=== PATIENT | female | born 1970 ===

== ENCOUNTER 2022-05-07 13:04 | Outpatient (REF) | payer OTHER, SELFPAY ==
[2022-05-07 15:08] LABS: HGB 12.9 g/dL (11.2-15.7); MCH 31.2 pg (27.0-33.0); MCHC 32.3 % (32.0-36.0); MCV 97 fL (80-95); MPV 10.8 fL (8.0-11.0); Platelet Count 308 10^3/uL (130-400); RBC 4.14 10^6/uL (3.93-5.22); RDW 12.2 % (11.7-14.6); RDW-SD 43.8 fL; WBC 5.81 10^3/uL (4.4-10.8)
[2022-05-07 15:25] LABS: Iron 126 ug/dL (50-170)
[2022-05-07 15:27] LABS: Hemoglobin A1C 5.7 % (<5.7)
[2022-05-07 16:06] LABS: ALT 27 U/L (14-59); AST 27 U/L (15-37); Albumin 3.8 g/dL (3.4-5.0); Alkaline Phosphatase 60 U/L (46-116); Anion Gap 8.7 mmol/L (3-11); BUN 13 mg/dL (7-18); Bilirubin, Total 0.3 mg/dL (0.2-1.0); CO2 26.3 mmol/L (21.0-32.0); CREATININE 0.8 mg/dL (0.55-1.02); Calcium 9.1 mg/dL (8.5-10.1); Chloride 106 mmol/L (98-107); Estimated GFR 89.15 (mL/min/1.73m2); Ferritin 78 ng/mL (8-252); Glucose 94 mg/dL (74-106); Potassium 4.2 mmol/L (3.5-5.1); Sodium 141 mmol/L (136-145); Total Protein 6.7 g/dL (6.4-8.2); Vitamin B12 534 pg/mL (193-986)
[2022-05-08 10:15] LABS: FSH 73.2 mIU/mL (See Note)
[2022-05-08 10:18] LABS: Parathyroid Hormone,Intact 41 pg/mL (19-88)
== END 2022-05-07 13:05 | disposition home or self-care (01) ==
LOC: NCHCN 13:04
PROVIDERS: Visit Provider Family Medicine
DX: R73.03 Prediabetes (principal); D64.9 Anemia, unspecified; N91.2 Amenorrhea, unspecified; Z98.84 Bariatric surgery status
CPT/HCPCS: 80053; 82306; 85027; 82607; 82728; 83001; 83036; 83540; 83970

== ENCOUNTER 2024-07-12 10:27 | Outpatient (REF) | payer OTHER, SELFPAY ==
--- NOTE | 2024-07-12 08:30 | PAPFT_PTH ---
PATIENT: Lety Cox LOC: [facility]N U#:[id number] AGE/SX: 54/F ROOM: RE07/12/[address]: Nava Fitzgerald : 1970 BED: DIS: 07/12/2024 SPEC #: [id number] RECD: 07/12/24 18:14 STATUS: HIRAL REFaith #: [id number] JASON: 07/12/24 08:[address]: Nava Fitzgerald DEPT: [facility] Cytology RECD BY: Donna Lozano Tissues: 1 - CX/ENDOCX FOR PAP SMEARS Procedures: PAP THIN PREP/UVM Screening HPV DNA PROBE Comments: [id number] (HPV 16 & 18/45)
--- OUTSIDE RECORDS SUMMARY | 2024-07-12 10:52 | XMS_ITS | Encounter Summary ---
Author Organization [facility] Address [address] [place] [address] Care Team Providers Care Manager Hvac Name Role Phone Paula Deleon MD Primary Care Provider [phone]- [phone] Encounter Details Date Type Department Care Team (Late st Contact Info) Description 03/31/2021 Lab Requisition [facility] Pathology & Laboratory Medicine - [facility] [address], [place] [address] Outr Resulting Lab, Provider Social History Tobacco Use Types Packs/Day Years Used Date Smoking Tobacco: Never Assessed Comments No Sex and Gender Information Value Date Recorded Sex Assigned at Not on file Legal Sex Female 17:59 EST Gender Identity Female 05/18/2022 15:42 EST Sexual Orientation Not on file documented as of this encounter Plan of Treatment Not on file documented as of this encounter Procedures Procedure Name Priority Date/Time Associated Diagnosis Comments VITAMIN D (25,OH) Routine 03/31/2021 15: 50 EDT documented in this encounter Results * VITAMIN D (25,OH) (03/31/2021 15:50 EDT) 25OH Vitamin D Tot 38.0 30.0 - 100.0 ng/mL 04/01/2021 13:05 EDT [facility] Comment: Vitamin D 25,OH Interpretive Ranges: Deficiency: ??<10.0 ng/mL Insufficiency: ??10.0 - 30.0 ng/mL Sufficiency: ??30.0 - 100.0 ng/mL Toxicity: ??>100.0 ng/mL Blood VENOUS BLOOD / Unknown 03/31/2021 15:50 EDT 03/31/2021 21:26 EDT us Provider Outr Resulting Lab CHEMISTRY & BLOOD GA S ORDERABLES Final Result [facility] [address] [place] [address] documented in this encounter Visit Diagnoses Not on filedocumented in this encounter Care Teams Manager Hvac Relationship Specialty Start Date End Date Paula Deleon MD [address] [address] PCP - General 09/29/12 documented as of this encounter
--- OUTSIDE RECORDS SUMMARY | 2024-07-12 10:52 | XMS_ITS | Encounter Summary ---
Author Organization [facility] Address [address] [place] [address] Care Team Providers Care Manual Lathe Operator Name Role Phone Unavailable Primary Care Provider Unavailabl e Encounter Details Date Type Department Care Team (Late st Contact Info) Description 05/05/2005 9:17 EST [facility] [address] [place] [address] Yamilka Matias MD [address] [place] [phone] Social History Tobacco Use Types Packs/Day Years Used Date Smoking Tobacco: Some Days Cigarettes 1 20 Smokeless Tobacco: Never Alcohol Use Standard Drinks/Week Comments No 0 (1 standard drink = 0.6 oz pur e alcohol) Comments No Sex and Gender Information Value Date Recorded Sex Assigned at Not on file Legal Sex Female 17:59 EST Gender Identity Female 05/18/2022 15:42 EST Sexual Orientation Not on file documented as of this encounter Plan of Treatment Not on file documented as of this encounter Visit Diagnoses Not on filedocumented in this encounter
--- OUTSIDE RECORDS SUMMARY | 2024-07-12 10:52 | XMS_ITS | Encounter Summary ---
Author Organization [facility] Address [address] [place] [address] Care Team Providers Care Filling Hauler Weaving Name Role Phone Unavailable Primary Care Provider Unavailabl e Encounter Details Date Type Department Care Team (Latest Contact Info) Description 03/25/2005 9:07 EDT - 03/27/2005 11:59 EDT Hospital Encounter [facility] General Surgery Unit [address] [place] [address] Yamilka Matias MD [address] [place] [phone] Discharge Disposition: Home or Self Care Social History Tobacco Use Types Packs/Day Years Used Date Smoking Tobacco: Never Assessed Comments Unknown Sex and Gender Information Value Date Recorded Sex Assigned at Not on file Legal Sex Female 17:59 EST Gender Identity Female 05/18/2022 15:42 EST Sexual Orientation Not on file documented as of this encounter Discharge Disposition Disposition Code Departure Means Destination Home or Self Care documented in this encounter OR Notes * OR Surgeon - Yamilka Matias - 03/25/2005 0000 EDT PROCEDURE REPORT PT TYPE: IP PT LOC: [id number] SERVICE DATE: 03/25/2005 SURGEON: Ryann Matias MD, Nat Matias MD, MD Donal, FACS OFFICE MESSENGER HELPER: Kade Hernandez MD PREOPERATIVE DIAGNOSIS: Morbid obesity, gastroesophageal reflux, low back pain, and stress incontinence. POSTOPERATIVE DIAGNOSIS: Morbid obesity, gastroesophageal reflux, low back, stress incontinence, and gallbladder cholesterolosis. PROCEDURE: Erick-en-Y gastric bypass and cholecystectomy. ANESTHESIA: General. INDICATIONS: This patient is a 34-year-old woman with a BMI of 48 and the above listed comorbidities, who has spent several months in the Bariat[facility] Clinic preparing for gastric bypass surgery. FINDINGS: Normal uterus and ovaries. Gallbladder with extensive gallbladder cholesterolosis. NARRATIVE: The patient was prepped and drapedsterilely over the abdomen after induction of general anesthesia in the supine position. upper midline incision was made and carried down through the midline fascia. The Omni retractor was then positioned. The gastrohepatic ligament was opened to gain access to the lesser sac. The esophagus was surrounded at the level of the EG junction with a Chrissie drain and pulled anteriorly. The G-tube was removed. The red rubber catheter was placed from the angle of His to a window in the lesser curve between the first and second branches of the left gastric vein. This was then used to guide the TLH 60 stapler around the stomach and a 10-15 cc gastric pouch was created in a vertical orientation with atriple firing of the TLH 60. The proximal jejunum was then identified by the ligament of Treitz and divided about 15-cm distally with theTLC 55 stapler. The mesentery was divided about 2-3 cm. 50-cm bypass limb was measured and stay sutures were used to tack the proximal jejunum to this point of the bypass limb. The bypass limb was then brought through a retrocolic, antegastric tunnel. The jejunojejunostomy was then performed in an end-to-side fashionwith the TLC 55 stapler,closing the enterotomies with the TLH 60 stapler. The jejunal mesenteric defect was closed with a running suture of 3-0 Vicryl. The jejunojejunostomy was inspected for hemostasis and integrity. This was found to be intact. this point the gastrojejunostomy was performed in a handsewn fashion with an outer layer of 3-0 silk and an inner layer of 3-0 Vicryl around a 32-Frenchdilator. The dilator was removed, the G-tube was positioned through the anastomosis, methylene bluewas insufflated under pressure, and no leak was identified. The G-tube was then removed and hemostasis in this area was found to be intact. falciform ligament was then divided and ligated with 2-0 Vicryl ties. The gallbladder was removed in a retrograde fashion down to the level of the cystic duct and artery,were ligated with 2-0 Vicryl ties. \par At this point, after correct sponge and instrument counts, the fascia was closed with a running suture of double-stranded #1 PDS. The subcutaneous tissue was irrigated and the skin was closed with jimmy. A sterile dressing was applied. The patient brought to the recovery room in good condition. Signed by Yamilka Matias MD, FACS 03/27/2005 09:42 Ryann Matias MD, [id number] Spaulding, MD, FACS Yamilka Matias MD, FACS [phone] - Yamilka Matias MD, FACS A - ljn Job ID: [id number] Document ID: [id number] cc: MD Yamilka Godinez MD, FACS documented in this encounter Plan of Treatment Not on file documented as of this encounter Procedures Procedure Name Priority Date/Time Associated Diagnosis Comments TEST, URINE Routine 03/25/2005 9:14 EDT documented in this encounter Results * TEST, URINE (03/25/2005 9:14 EDT) Result-Pregnanc y Test, Ur Neg [facility] 03/25/2005 9:14 EDT 03/25/2005 9:16 EDT us Yamilka Matias MD URINALYSIS ORDERABLES Final Result [facility] [address] [place] [address] documented in this encounter Visit Diagnoses Not on filedocumented in this encounter
--- OUTSIDE RECORDS SUMMARY | 2024-07-12 10:52 | XMS_ITS | Encounter Summary ---
Author Organization [facility] Address [address] [place] [address] Care Team Providers Care Rope Cleaner Name Role Phone Unavailable Primary Care Provider Unavailabl e Encounter Details Date Type Department Care Team (Late st Contact Info) Description 04/07/2005 12:13 EST Hospital Encounter [facility] [address] [place] [address] Yamilka Matias MD [address] [place] [phone] Social History Tobacco Use Types Packs/Day Years [...]
--- OUTSIDE RECORDS SUMMARY | 2024-07-12 10:52 | XMS_ITS | Encounter Summary ---
Author Organization [facility] Address [address] [place] [address] Care Team Providers Care Client Retention Specialist Name Role Phone Paula Deleon MD Primary Care Provider +1- [phone] Reason for Referral * Radiology Services (Routine/Next Available) - Authorization Not Required Specialty Diagnoses / Procedures Referred By Bri sun Referred To Contact Diagnoses Encounter for screening mammogram for malignant neoplasm of breast Procedures MA BREAST SCREENING GILBERT BILATERAL Tiffani Fitzgerald MD [address] [address] Phone: tel: fax: [facility] Referral ID Status Reason Start Date Expiration Date Visits Requested Visits Authorized [id number] Authorization Not Required 3 1 1 Reason for Visit * Radiology Services (Routine/Next Available) - Authorization Not Required Specialty Diagnoses / Procedures Referred By Bri sun Referred To Contact Diagnoses Encounter for screening mammogram for malignant neoplasm of breast Procedures MA BREAST SCREENING GILBERT BILATERAL Tiffani Fitzgerald MD 4 [facility] [address] [place] [address] Phone: tel: fax: [facility] [place] Referral ID Status Reason Start Date Expiration Date Visits Requested Visits Authorized [id number] Authorization Not Required 3 1 1 Encounter Details Date Type Department Care Team (Latest Contact Info) Description 08/18/2023 7:46 EDT - 08/18/2023 23:59 EDT Hospital Encounter [facility] [address] [place] [address] Encounter for screening mammogram for malignant neoplasm of breast Discharge Disposition: Home or Self Care Social [...] on file documented as of this encounter Last Filed Vital Signs Vital Sign Reading Time Taken Comments Blood Pressure - - Pulse - - Temperature - - Respiratory Rate - - Oxygen Saturation - - Inhaled Oxygen Concentration - - Weight 59 kg (130 lb) 08/18/2023 0807 EDT Height 149.2 cm (4' 10.75) 08/18/2023 0807 EDT Body Mass Index 26.48 08/18/2023 0807 EDT documented in this encounter Medications at Time of Discharge aspirin chewable 81 mg tablet Take 81 mg by mouth daily. Calcium 600 mg cap Take 600 mg by mouth daily. escitalopram (LEXAPRO) 20 mg tablet Take 40 mg by mouth daily. IRON/B CPLX/B12/LIVER EXTRACT (I.L.X. B-12 ORAL) Take 500 mg by mouth daily. MULTIVIT &MINERALS/FERROUS FUM (MULTI VITAMIN ORAL) Take by mouth daily. omeprazole (PRILOSEC) 20 mg capsule Take 40 mg by mouth daily. rizatriptan (MAXALT) 10 mg tablet Take 10 mg by mouth once as needed. May repeat in 2 hours if needed topiramate (TOPAMAX) 100 mg tablet Take 100 mg by mouth daily. zolpidem (AMBIEN) 10 mg tablet Take 10 mg by mouth at bedtime as needed. documented as of this encounter Discharge Disposition Disposition Code Departure Means Destination Home or Self Care documented in this encounter Plan of Treatment Not on file documented as of this encounter Procedures Procedure Name Priority Date/Time Associated Diagnosis Comments MA BREAST SCREENING GILBERT BILATERAL Routine 08/18/2023 8:14 EDT Encounter for screening mammogram for malignant neoplasm of breast documented in this encounter Results * MA BREAST SCREENING GILBERT BILATERAL (08/18/2023 8:14 EDT) Anatomical Region Laterality Modality Breast Bilateral Mammography 08/18/2023 10:0 8 EDT Impressions 08/18/2023 10:08 EDT Negative, no evidence of malignancy. RECOMMENDATION: Routine screening mammography is recommended. OVERALL ASSESSMENT: BI-RADS 1: Negative These results will be communicated to your patient via a lay letter from Radiology. If any additional imaging is needed we will contact your patient directly. [id number] Narrative 08/18/2023 10:08 EDT MA BREAST SCREENING GILBERT BILATERAL ??08/18/2023 8:06 AM History: ROUTINE SCREENING;Z12.31:Encounter for screening mammogram for malignant neoplasm of breast Comparison: ??Comparison has been made to previous images . ? Technique: Routine 3D tomosynthesis with synthesized 2D views with CAD Breast Composition: There are scattered areas of fibroglandular density. Bilateral Breast Findings: ??No significant masses, calcifications or other abnormalities are seen. Procedure Note Saran David MD - 08/18/2023 MA BREAST SCREENING GILBERT BILATERAL 08/18/2023 8:06 AM History: ROUTINE SCREENING;Z12.31:Encounter for screening mammogram formalignant neoplasm of breast Comparison: Comparison has been made to previous images . Technique: Routine 3D tomosynthesis with synthesized 2D views with CAD Breast Composition: There are scattered areas of fibroglandular density. Bilateral Breast Findings: No significant masses, calcifications or otherabnormalities are seen. IMPRESSION Negative, no evidence of malignancy. RECOMMENDATION: Routine screening mammography is recommended. OVERALL ASSESSMENT: BI-RADS 1: Negative These results will be communicated to your patient via a lay letter fromRadiology. If any additional imaging is needed we will contact yourpatient directly. [id number] Tiffani Fitzgerald MD IMG MAMMOGRAPHY ORDER CHRISTOPHER Final Result documented in this encounter Visit Diagnoses Diagnosis Encounter for screening mammogram for malignant neoplasm of breast Other screening mammogram documented in this encounter Care Teams Client Retention Specialist Relationship Specialty Start Date End Date Paula Deleon MD [address] [address] PCP - General 09/29/12 documented as of this encounter
--- OUTSIDE RECORDS SUMMARY | 2024-07-12 10:52 | XMS_ITS | Encounter Summary ---
Author Organization [facility] Address [address] [place] [address] Care Team Providers Care Scrap Piler Name Role Phone Unavailable Primary Care Provider Unavailabl e Encounter Details Date Type Department Care Team (Late st Contact Info) Description 03/03/2004 Results Only [facility] [address] [place] [address] Unknown, Provider, Social History Tobacco Use Types Packs/Day Years [...] Name Priority Date/Time Associated Diagnosis Comments VITAMIN B12 Routine 03/03/2004 12:39 EDT documented in this encounter Results * (ABNORMAL) VITAMIN B12 (03/03/2004 12:39 EDT) Vitamin B-12 218(L) 250 - 1100 pg/ml [facility] 03/03/2004 12:3 9 EDT 03/04/2004 20:58 EDT us Provider Unknown CHEMISTRY & BLOOD GAS ORDERA BLES Final Result [facility] [address] [place] [address] documented in this encounter Visit Diagnoses Not on filedocumented in this encounter
--- OUTSIDE RECORDS SUMMARY | 2024-07-12 10:52 | XMS_ITS | Encounter Summary ---
Author Organization [facility] Address [address] [place] [address] Care Team Providers Care Heel Top Lift Splitter Name Role Phone Unavailable Primary Care Provider Unavailabl e Encounter Details Date Type Department Care Team (Late st Contact Info) Description 04/23/2004 Results Only [facility] - Map conversion [address] [place] [address] Peter Wright MD [address] [place] [phone] Social History Tobacco Use Types Packs/Day Years [...] Procedure Name Priority Date/Time Associated Diagnosis Comments CYTOPATHOLOGY Routine 04/23/2004 0:00 EST documented in this encounter Results * CYTOPATHOLOGY (04/23/2004 0:00 EST) Pathology Report: CYTOPATHOLOGY REPORT Reports generated via electronic interface contain original data; however they are lacking the format of the original report. Caution should be taken when reading/interpreti ng unformatted reports. Name: ? AMINATA COX ? Accession #: ? [id number] : ? 1970 (Age: 33) ??F ?Collect Date: ? 04/23/2004 Location: ? [facility] ? Receive Date: ? 04/28/2004 Provider: ?PETER WRIGHT MD Copy to: ? Specimen/Source: ?ThinPrep Pap Test, Endocervix Last Menstrual Period: ? Other: ? HPVA - HPV testing requested if ASC-US on the current ThinPrep Pap test. ? SPECIMEN ADEQUACY ? Satisfactory for Evaluation - transformation zone component present GENERAL CATEGORIZATION ? Negative for Intraepithelial Lesion or Malignancy ? Document reviewed and electronically signed by: ? LOUISE Paredes(ASCP) ? Report Date: ??05/05/2004 08:26 End of Report [facility] 04/23/2004 04/28/2004 us Peter Wright MD PATHOLOGY ORDERABLES Final Result [facility] [address] [place] [address] documented in this encounter Visit Diagnoses Not on filedocumented in this encounter
--- OUTSIDE RECORDS SUMMARY | 2024-07-12 10:52 | XMS_ITS | Encounter Summary ---
Author Organization [facility] Address [address] [place] [address] Care Team Providers Care Cotton Dispatcher Name Role Phone Unavailable Primary Care Provider Unavailabl e Encounter Details Date Type Department Care Team (Late st Contact Info) Description 05/29/2008 Before PRISM Converted Visit ([place]) [facility] [place] [facility] [address] [place] [address] Peter Wright MD [address] [place] [phone] Social History Tobacco Use Types Packs/Day Years [...] Procedure Name Priority Date/Time Associated Diagnosis Comments FOLATE Routine 05/29/2008 10:22 EST VITAMIN B12 Routine 05/29/2008 10:22 EST CYTOPATHOLOGY Routine 05/29/2008 0:00 EST documented in this encounter Results * VITAMIN B12 (05/29/2008 10:22 EST) Vitamin B-12 510 250 - 1100 pg/ml [facility] 05/29/2008 10:2 2 EST 05/29/2008 21:32 EST us Provider Unknown MD CHEMISTRY & BLOOD GAS ORDERA BLES Final Result Performing Organization Address [facility] de Phone Number [facility] [address] [place] [address] * FOLATE (05/29/2008 10:22 EST) Folate 13.5 ng/mL [facility] Comment: Deficient: ??Less than 3.4 ng/mL Indeterminate: ??3.4-5.4 ng/mL Normal: ??Greater than 5.4 ng/mL 05/29/2008 10:2 2 EST 05/29/2008 21:32 EST us Provider Unknown MD CHEMISTRY & BLOOD GAS ORDERA BLES Final Result Performing Organization Address [facility] de Phone Number [facility] [address] [place] [address] * CYTOPATHOLOGY (05/29/2008 0:00 EST) Pathology Report: CYTOPATHOLOGY REPORT ? Reports generated via electronic interface contain original data; ? however they are lacking the format of the original report. ? Caution should be taken when reading/interpreti ng unformatted reports. ? Name: ? COX, AMINATA E ? Accession #: ? [id number] ? : ? 1970 (Age: 37) ??F ?Collect Date: ? 05/29/2008 ? Location: ? [facility] ? Receive Date: ? 05/30/2008 ? Provider: ?PETER JIMENEZPSON MD ? Copy to: ? Specimen/Source: ?Pap Test, Cervix, ThinPrep Imaging System with manual ?? evaluation ? Last Menstrual Period: ? Other: ? HPVA - HPV testing requested if ASC-US on the current ThinPrep Pap test. ? SPECIMEN ADEQUACY ? Satisfactory for Evaluation ? - transformation zone component present ? GENERAL CATEGORIZATION ? Negative for Intraepithelial Lesion or Malignancy ? Document reviewed and electronically signed by: ? Alexander Lam, CT(ASCP) ? Report Date: ??06/04/2008 10:10 ? End of Report ? [facility] 05/29/2008 05/30/2008 us Peter Wright MD PATHOLOGY ORDERABLES Final Result Performing Organization Address City/State/[facility] Co dc Phone Number [facility] [address] [place] [phone] documented in this encounter Visit Diagnoses Not on filedocumented in this encounter
--- OUTSIDE RECORDS SUMMARY | 2024-07-12 10:52 | XMS_ITS | Encounter Summary ---
Author Organization [facility] Address [address] [place] [address] Care Team Providers Care Crew Member Name Role Phone Paula Deleon MD Primary Care Provider +1- [phone] Reason for Referral * Radiology Services (Routine/Next Available) - Authorization Not Required Specialty Diagnoses / Procedures Referred By Bri t Referred To Contact Diagnoses Encounter for other screening for malignant neoplasm of breast Procedures MA BREAST SCREENING GILBERT BILATERAL Tiffani Fitzgerald MD [address] [place] [address] Phone: tel: fax: [facility] Referral ID Status Reason Start Date Expiration Date Visits Requested Visits Authorized [id number] Authorization Not Required 05/07/2022 1 1 Reason for Visit * Radiology Services (Routine/Next Available) - Authorization Not Required Specialty Diagnoses / Procedures Referred By Bri sun Referred To Contact Diagnoses Encounter for other screening for malignant neoplasm of breast Procedures MA BREAST SCREENING GILBERT BILATERAL Tiffani Fitzgerald MD 4 [facility] [address] [place] [address] Phone: tel: fax: [facility] Referral ID Status Reason Start Date Expiration Date Visits Requested Visits Authorized [id number] Authorization Not Required 05/07/2022 1 1 Encounter Details Date Type Department Care Team (Latest Contact Info) Description 07/01/2022 8:23 EST - 07/01/2022 23:59 EST Hospital Encounter [facility] Mammography [address] [id number] Encounter for other screening for malignant neoplasm of breast Discharge Disposition: [...] - Inhaled Oxygen Concentration - - Weight 56.7 kg (125 lb) 07/01/2022 0847 EST Height 149.9 cm (4' 11) 07/01/2022 0847 EST Body Mass Index 25.25 07/01/2022 0847 EST documented in this encounter Medications at Time [...] Comments MA BREAST SCREENING GILBERT BILATERAL Routine 07/01/2022 8:50 EST Encounter for other screening for malignant neoplasm of breast documented in this encounter Results * MA BREAST SCREENING GILBERT BILATERAL (07/01/2022 8:50 EST) Anatomical Region Laterality Modality Breast Bilateral Mammography 07/03/2022 7:03 EST Impressions 07/03/2022 7:03 EST Negative, no evidence of malignancy. RECOMMENDATION: Routine screening mammography is recommended. OVERALL ASSESSMENT: BI-RADS 1: Negative These results will be communicated to your patient via a lay letter from Radiology. If any additional imaging is needed we will contact your patient directly. Narrative 07/03/2022 7:03 EST MA BREAST SCREENING GILBERT BILATERAL ??07/01/2022 8:30 AM History: Screening, ? previous images somewhere Comparison: ??Comparison has been made to previous images. Technique: Routine 3D tomosynthesis with synthesized 2D views with CAD Bilateral Breast Composition: There are scattered areas of fibroglandular density. Bilateral Breast Findings: ??No significant masses, calcifications or other abnormalities are seen. Procedure Note Saran David MD - 07/03/2022 MA BREAST SCREENING GILBERT BILATERAL 07/01/2022 8:30 AM History: Screening, ? previous images somewhere Comparison: Comparison has been made to previous images. Technique: Routine 3D tomosynthesis with synthesized 2D views with CAD Bilateral Breast Composition: There are scattered areas of fibroglandulardensity. Bilateral Breast Findings: No significant masses, calcifications or otherabnormalities are seen. IMPRESSION Negative, no evidence of malignancy. RECOMMENDATION: Routine screening mammography is recommended. OVERALL ASSESSMENT: BI-RADS 1: Negative These results will be communicated to your patient via a lay letter fromRadiology. If any additional imaging is needed we will contact yourpatient directly. Tiffani Fitzgerald MD IMG MAMMOGRAPHY ORDER CHRISTOPHER Final Result documented in this encounter Visit Diagnoses Diagnosis Encounter for other screening for malignant neoplasm of breast documented in this encounter Care Teams Crew Member Relationship Specialty Start Date End Date Paula Deleon MD [address] [address] PCP - General 09/29/12 documented as of this encounter
--- OUTSIDE RECORDS SUMMARY | 2024-07-12 10:52 | XMS_ITS | Encounter Summary ---
Author Organization [facility] Address [address] [place] [address] Care Team Providers Care Senior Advisory Name Role Phone Unavailable Primary Care Provider Unavailabl e Encounter Details Date Type Department Care Team (Late st Contact Info) Description 09/18/2004 Results Only [facility] - [place] conversion [address] [place] [address] Unknown, Provider, Social History Tobacco Use Types [...] Procedure Name Priority Date/Time Associated Diagnosis Comments TRANSFERRIN Routine 09/18/2004 6:34 EDT PREALBUMIN Routine 09/18/2004 6:34 EDT FOLATE Routine 09/18/2004 6:34 EDT VITAMIN B12 Routine 09/18/2004 6:34 EDT documented in this encounter Results * TRANSFERRIN (09/18/2004 6:34 EDT) Transferrin 323 202 - 336 mg/dl [facility] 09/18/2004 6:34 EDT 09/18/2004 20:18 EDT us Provider Unknown CHEMISTRY & BLOOD GAS ORDERA BLES Final Result Performing Organization Address City/[facility]/ZIP Co de Phone Number [facility] [address] [place] [address] * PREALBUMIN (09/18/2004 6:34 EDT) Prealbumin 22 18 - 38 mg/dl [facility] 09/18/2004 6:34 EDT 09/18/2004 20:18 EDT us Provider Unknown CHEMISTRY & BLOOD GAS ORDERA BLES Final Result Performing Organization Address [facility] Co de Phone Number [facility] [address] [place] [address] * FOLATE (09/18/2004 6:34 EDT) Folate 15.1 ng/mL [facility] Comment: Deficient: ??Less than 3.4 ng/mL Indeterminate: ??3.4-5.4 ng/mL Normal: ??Greater than 5.4 ng/mL 09/18/2004 6:34 EDT 09/18/2004 20:18 EDT us Provider Unknown CHEMISTRY & BLOOD GAS ORDERA BLES Final Result Performing Organization Address [facility] Co de Phone Number [facility] [address] [place] [address] * VITAMIN B12 (09/18/2004 6:34 EDT) Vitamin B-12 598 250 - 1100 pg/ml [facility] 09/18/2004 6:34 EDT 09/18/2004 20:18 EDT us Provider Unknown CHEMISTRY & BLOOD GAS ORDERA BLES Final Result Performing Organization Address [facility]/ZIP Co de Phone Number [facility] [address] [place] [address] documented in this encounter Visit Diagnoses Not on filedocumented in this encounter
--- OUTSIDE RECORDS SUMMARY | 2024-07-12 10:52 | XMS_ITS | Encounter Summary ---
Author Organization [facility] Address [address] [place] [address] Care Team Providers Care Avionics Test Technician Name Role Phone Paula Deleon MD Primary Care Provider +1- [phone] Encounter Details Date Type Department Care Team (Late st Contact Info) Description 03/31/2021 Lab Requisition [facility] Pathology & Laboratory Medicine - [facility] [address] [place], [place] [phone] Outr Resulting Lab, Provider Social History Tobacco [...] Priority Date/Time Associated Diagnosis Comments FOLATE Routine 03/31/2021 15:50 EDT documented in this encounter Results * FOLATE (03/31/2021 15:50 EDT) Folate 23.1 See Note ng/mL 03/31/2021 22:55 EDT [facility] Comment: Reference Ranges for Folate: Deficient: ?< 3.4 ng/mL Indeterminate: ??3.4 - 5.4 ng/mL Normal: ? > 5.4 ng/mL The results of this assay can be falsely elevated due to the consumption of Biotin. Blood VENOUS BLOOD / Unknown 03/31/2021 15:50 EDT 03/31/2021 21:26 EDT us Provider Outr Resulting Lab CHEMISTRY & BLOOD GA S ORDERABLES Final Result Performing Organization Address City/State/[facility] Co de Phone Number [facility] [address] [place] [address] documented in this encounter Visit Diagnoses Not on filedocumented in this encounter Care Teams Avionics Test Technician Relationship Specialty Start Date End Date Paula Deleon MD [address] [address] PCP - General 09/29/12 documented as of this encounter
--- OUTSIDE RECORDS SUMMARY | 2024-07-12 10:52 | XMS_ITS | Encounter Summary ---
Author Organization [facility] Address [address] [place] [address] Care Team Providers Care Preschool Paraprofessional Name Role Phone Paula Deleon MD Primary Care Provider +1- [phone] Reason for Visit * Reason Comments New Patient Visit anemia and thrombocy tosis Encounter Details Date Type Department Care Team (Latest Contact Info) Description 10/03/2012 12:00 EDT Office Visit [facility] Hematology & Oncology - [place] [address] [place] [address] Dorcas Dugan MD Iron deficiency anemia, unspecified (Primary Dx); Secondary thrombocytosis Social History Tobacco Use Types Packs/Day Years Used Date Smoking Tobacco: Some Days Cigarettes 1 20 Smokeless Tobacco: Never Tobacco Cessation:Ready to Q uit: No; Counseling Given: Yes Alcohol Use Standard Drinks/Week Comments No 0 [...] Sign Reading Time Taken Comments Blood Pressure 110/80 10/03/2012 1223 EDT Pulse 68 10/03/2012 1223 EDT Temperature - - Respiratory Rate 14 10/03/2012 1223 EDT Oxygen Saturation - - Inhaled Oxygen Concentration - - Weight 61.2 kg (134 lb 14.4 oz) 10/03/2012 1223 EDT Height 151 cm (4' 11.45) 10/03/2012 1223 EDT Body Mass Index 26.84 10/03/2012 1223 EDT documented in this encounter Patient Instructions * Patient Instructions* Dorcas Dugan MD - 10/03/2012 14:32 EDT Please get your blood drawn at [facility] this week or next in the fating state before breakfast. I will call you with the results. I will schedule you for IV iron sucrose (Venofer) at [facility] ACU if needed. 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 Lety comes to the hem/onc outreach clinic accompanied by her long-term gentleman partner and her son. She th oroughly completed her new patient evaluation form, which we went through together on a oiec-gx-qhch basis. Prior to visiting with Ayaka today, I reviewed [facility] E[facility] in addition to outpatient clinic notes from Dr Deleon coupled with labs from [facility]. I'm here about increased blood platelets. HISTORY OF PRESENT ILLNESS: 42-year-old white female with past medical history remarkable for obesity status post gastric bypass via Erick-en-Y coupled with cholecystectomy 02/2005, migrainous headaches, GERD, depression, and an approximate 68-hwsn-nlvd history of cigarette smoking, presently being seen for mild anemia and thrombocytosis. In going through past [facility] EMR, there is a discharge summary from [facility] hospitalization in the fall of 2004 at the time of her gastric bypass surgery and cholecystectomy. Her most recent labs in the [facility] system are from late 04/2008 including folate 13.5, and vitamin B12 510. She was seen by Dr Deleon for routine health maintenance on 07/08/2012. In going t hrough Dr Deleon's note, it appears that Ayaka had a quite normal physical exam at that time and was without any significant complaints. Labs from 07/12/2012 include the following: CBC with diff with WBC 7.4 and normal-appearing differential including ANC 4.7, hemoglobin 11.4, hematocrit 36%, MCV 84, and platelet count 608,000; TSH 0.93; CMP entirely normal; iron 35. Her labs were repeated on 08/09/2012 including another CBC showing WBC 6.4, no diff, hemoglobin 11.6, hematocrit 36%, MCV 82, and platelet count 559,000, as well as, once again, an entirely normal CMP. A third CBC with diff was done on 09/28/2012 showing WBC 7.3, normal diff, hemoglobin 11, hematocrit 36%, MCV 85, and platelet count 541,000. She is subsequently referred for further evaluation, especially of her clinically asymptomatic but persistent thrombocytosis. REVIEW OF SYSTEMS: On review of systems questioning, Lety has a long list of no's. She has successfully lost well over 100 pounds since her gastric bypass surgery eight years ago. She describesa healthy diet including fruits, vegetables, lean meats, eggs, and minimal dairy as she oftentimes has some bloating and diarrhea if she eats/drinks milk products. She has tried iron supplementation in the past and has always experienced abdominal bloating and constipation with even minimal supplements. She is quite faithful in taking a daily multivitamin, calcium and Vitamin B12 orally. She doesnote intermittent slight bloating as well as nonbloody diarrhea ever since her gastric bypass surgery. She denies any documented fevers, drenching night sweats, fatigue, anorexia, headache, rash, pruritus, chest pain, cough, palpitations, difficulty swallowing, nausea/vomiting, new bony pain, abdominal pain, bowel or bladder incontinence, lower extremity edema, or obvious bleeding from any sites. Her gynecologic history is remarkable for 1 and subsequent delivery in her early 20s. Zaki had a menstrual period in the spring of 2009 and currently has an IUD in place. She is quite sure with me that she has not had vaginal bleeding over the past approximate 3 years. She denies nosebleeds, hemoptysis, hematemesis, bright red blood per rectum, melena or hematuria. She has never hadany thromboembolic episodes that she is aware of. PAST MEDICAL HISTORY: GERD, migrainous headaches, and depression. One uncomplicated and delivery in her early 20s. Status post gastric bypass coupled with cholecystectomy in 02/2005. MEDICATIONS: Prilosec 40 mg daily. Lexapro 40 mg daily. Topamax 100 mg daily. Ambien p.r.n. Maxalt p.r.n. Aspirin 81 mg daily. Calcium 600 mg b.i.d. Vitamin B12 500 mg daily. Multivitamin daily. ALLERGIES: She is allergic to SULFA MEDS, which have caused hives in the past. FAMILY HISTORY: Father in his late 50s from colon cancer. Her maternal grandmother from breast cancer in her 50s. Her maternal grandfather from leukemia in his early 70s. She has maternal aunts with histories of breast cancer. SOCIAL HISTORY: Lety is a [place]. 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 She has been with her gentleman partner over the past approximate 20years. She is single. She has smoked about 1 pack of cigarettes per day on and off for 20 years. ETOH -- minimal. OBJECTIVE: Weight 61.2 kilograms, height 151 cm. BP 110/80, pulse 68, RR 14. Pain score zero. General appearance: Pleasant, nicely-groomed, healthy-appearing middle-aged white female sitting a bit anxiously in the chair. HEENT exam shows normal hair and eyebrows, white sclerae, no temporal muscle wasting and no obvious conjunctival or facial pallor. There is no abnormal lymphadenopathy in her neck, supraclavicular or axillary regions. Back without significant bony spinal tenderness or deformity. Lungs clear to A+P with a good inspiratory effort. CV exam with RRR. Soft, nontender abdomen without HSM or palpable masses. Lower extremities without edema or rash. Alert, oriented x3 with full affect. She asked several appropriate questions. Normal gait. IMPRESSION: 42-year-old white female with a mild microcytic anemia, borderline low iron level, and mild clinically asymptomatic thrombocytosis per recent labs over the past couple of months. I think this most likely represents underlying mild chronic iron deficiency anemia with a secondary reactivethrombocytosis. While she eats a diet that does contain probably a fair amount of iron, she may have difficulty with full absorption of dietary iron given her past gastric bypass surgery. She does not have any sites of obvious blood loss including any actual menses over the past few years. I think we will get her labs updated with another CBC, iron level, and ferritin, with these labs done in themorning in the fasting state to verify that she really does have underlying iron deficiency anemia.If so, I think further upping the iron in her diet and/or asking her to try to take oral iron supplements will not really be overly helpful as I think she will continue to have some malabsorption problems, plus she will get too much GI symptomatology from p.o. iron. We could then look at IV iron inthe form of iron sucrose (Venofer). I would expect that her thrombocytosis should normalize following adequate iron replenishment. There is a small chance that this represents a primary thrombocytosis, although I doubt this. PLAN: 1. I spent 65 minutes in nhur-lj-nfph contact with Lety and her family today. We discussed her labs and differential diagnosis of both anemia and thrombocytosis. She seems significantly emotionally relieved after our discussion as she was pretty scared when we first together that I might have s ome kind of bad cancer problem like so many other people I know. 2. Lety will have labs drawn in the fasting state either this week or next to the [facility] include a CBC with diff, iron, and ferritin. I will contact her with those test results and arrange for IV iron sucrose if that is appropriate. 3. We did discuss smoking cessation. 4. Contingency plan for bone marrow aspirate/biopsy and JAK2 testing if she is actually not iron deficient. I am doubtful that we are going to need this level of testing, however. Electronically Signed by Dorcas Dugan MD 10/11/2012 08:56 Dorcas Dugan MD Hematology / Oncology Attending - Dorcas Dugan MD - ARMANDO Job ID: SM Doc ID: [id number] Ext Doc ID: [id number] cc: Paula Deleon MD * Dorcas Dugan MD - 10/03/2012 1431 EDT This office note has been dictated. documented in this encounter Miscellaneous Notes * Scanned Note-Null - SITE MEDICAL DIRECTOR, SCAN 2 - 10/10/2012 0331 EDT documented in this encounter Plan of Treatment Not on file documented as of this encounter Visit Diagnoses Diagnosis Iron deficiency anemia, unspecified- Primary Secondary thrombocytosis Essential thrombocythemia documented in this encounter Historical Medications * This list may reflect changes made after this encounter. rizatriptan (MAXALT) 10 mg tablet Take 10 mg by mouth once as needed. May repeat in 2 hours if needed zolpidem (AMBIEN) 10 mg tablet Take 10 mg by mouth at bedtime as needed. MULTIVIT &MINERALS/FERROUS FUM (MULTI VITAMIN ORAL) Take by mouth daily. aspirin chewable 81 mg tablet Take 81 mg by mouth daily. IRON/B CPLX/B12/LIVER EXTRACT (I.L.X. B-12 ORAL) Take 500 mg by mouth daily. Calcium 600 mg cap Take 600 mg by mouth daily. topiramate (TOPAMAX) 100 mg tablet Take 100 mg by mouth daily. escitalopram (LEXAPRO) 20 mg tablet Take 40 mg by mouth daily. omeprazole (PRILOSEC) 20 mg capsule Take 40 mg by mouth daily. added in this encounter Care Teams Preschool Paraprofessional Relationship Specialty Start Date End Date Paula Deleon MD [address] [address] PCP - General 09/29/12 documented as of this encounter
--- OUTSIDE RECORDS SUMMARY | 2024-07-12 10:52 | XMS_ITS | Encounter Summary ---
Author Organization [facility] Address [address] [place] [address] Care Team Providers Care Food Service Clerk Name Role Phone Unavailable Primary Care Provider Unavailabl e Encounter Details Date Type Department Care Team (Late st Contact Info) Description 11/17/2005 Results Only [facility] - Map conversion [address] [place] [address] Peter Wright MD [address] [place] [id number] Social History Tobacco Use Types Packs/Day Years [...] Priority Date/Time Associated Diagnosis Comments CYTOPATHOLOGY Routine 11/17/2005 0:00 EDT documented in this encounter Results * CYTOPATHOLOGY (11/17/2005 0:00 EDT) Pathology Report: CYTOPATHOLOGY REPORT Reports generated via electronic interface contain original data; however they are lacking the format of the original report. Caution should be taken when reading/interpreti ng unformatted reports. Name: ? AMINATA COX ? Accession #: ? [id number] : ? 1970 (Age: 35) ??F ?Collect Date: ? 11/17/2005 Location: ? [facility] ? Receive Date: ? 11/19/2005 Provider: ?PETER WRIGHT MD Copy to: ? Specimen/Source: ?ThinPrep Pap Test, Cervix, processed on [employer] ThinPrep Imaging System, with manual evaluation Last Menstrual Period: ? Other: ? HPVA - HPV testing requested if ASC-US on the current ThinPrep Pap test. ? SPECIMEN ADEQUACY ? Satisfactory for Evaluation - transformation zone component absent GENERAL CATEGORIZATION ? Negative for Intraepithelial Lesion or Malignancy ? Document reviewed and electronically signed by: ? Rebecca Walsh, RUST(ASCP) ? Report Date: ??11/23/2005 10:59 End of Report [facility] 11/17/2005 11/19/2005 us Peter Wright MD PATHOLOGY ORDERABLES Final Result [facility] [address] [place] [address] documented in this encounter Visit Diagnoses Not on filedocumented in this encounter
--- OUTSIDE RECORDS SUMMARY | 2024-07-12 10:52 | XMS_ITS | Encounter Summary ---
Author Organization [facility] Address [address] [place] [address] Care Team Providers Care Manager Of Network Name Role Phone Unavailable Primary Care Provider Unavailabl e Encounter Details Date Type Department Care Team (Late st Contact Info) Description 09/10/2005 10:24 EDT Hospital Encounter [facility] [address] [place] [address] Delaney Sarkar, LEGAL RESEARCHER 61 [facility] [address] [id number] Social History Tobacco Use Types Packs/Day Years [...] Date/Time Associated Diagnosis Comments VITAMIN B12 Routine 12/05/2007 13:42 EDT PREALBUMIN Routine 09/11/2005 7:11 EDT FERRITIN Routine 09/11/2005 7:11 EDT VITAMIN B12 Routine 09/11/2005 7:11 EDT documented in this encounter Results * VITAMIN B12 (12/05/2007 13:42 EDT) Pathologist [facility] Vitamin B-12 733 250 - 1100 pg/ml [facility] 12/05/2007 13:4 2 EDT 12/05/2007 22:10 EDT us Provider Unknown MD CHEMISTRY & BLOOD GAS ORDERA BLES Final Result Performing Organization Address [facility] Co de Phone Number [facility] [address] [place] [address] * PREALBUMIN (09/11/2005 7:11 EDT) Pathologist [facility] Prealbumin 21 18 - 38 mg/dl [facility] 09/11/2005 7:11 EDT 09/11/2005 21:18 EDT Provider Unknown CHEMISTRY & BLOOD GAS ORDERA BLES Final Result Performing Organization Address [facility] de Phone Number [facility] [address] [place] [address] * FERRITIN (09/11/2005 7:11 EDT) Pathologist [facility] Ferritin 268 10 - 291 ng/mL [facility] 09/11/2005 7:11 EDT 09/11/2005 21:18 EDT us Provider Unknown CHEMISTRY & BLOOD GAS ORDERA BLES Final Result Performing Organization Address [facility] Co de Phone Number [facility] [address] [place] [address] * VITAMIN B12 (09/11/2005 7:11 EDT) Pathologist [facility] Vitamin B-12 444 250 - 1100 pg/ml [facility] 09/11/2005 7:11 EDT 09/11/2005 21:18 EDT us Provider Unknown CHEMISTRY & BLOOD GAS ORDERA BLES Final Result [facility] [address] [place] [address] documented in this encounter Visit Diagnoses Not on filedocumented in this encounter
--- OUTSIDE RECORDS SUMMARY | 2024-07-12 10:52 | XMS_ITS | Encounter Summary ---
Author Organization [facility] Address [address] [place] [address] Care Team Providers Care Roughener Name Role Phone Unavailable Primary Care Provider Unavailabl e Encounter Details Date Type Department Care Team (Late st Contact Info) Description 07/01/2006 Results Only [facility] [address] [place] [address] Unknown, Provider, Social History Tobacco Use Types [...] Procedure Name Priority Date/Time Associated Diagnosis Comments FERRITIN Routine 07/01/2006 9:53 EST VITAMIN B12 Routine 07/01/2006 9:53 EST documented in this encounter Results * FERRITIN (07/01/2006 9:53 EST) Ferritin 100 10 - 291 ng/mL [facility] 07/01/2006 9:53 EST 07/01/2006 22:11 EST us Provider Unknown CHEMISTRY & BLOOD GAS ORDERA BLES Final Result [facility] [address] [place] [address] * VITAMIN B12 (07/01/2006 9:53 EST) Vitamin B-12 808 250 - 1100 pg/ml [facility] 07/01/2006 9:53 EST 07/01/2006 22:11 EST us Provider Unknown CHEMISTRY & BLOOD GAS ORDERA BLES Final Result Performing Organization Address City/State/[facility] Co de Phone Number [facility] [address] [place] [address] documented in this encounter Visit Diagnoses Not on filedocumented in this encounter
--- OUTSIDE RECORDS SUMMARY | 2024-07-12 10:52 | XMS_ITS ---
Author Organization Unknown Address [address] [place] [phone] Phone Care Team Providers Care Almond Pan Finisher Name Role Phone BHASKAR HDZ Registered Nurse Unavailable KRUNAL GHOSH Registered Nurse Unavailable BAKARI Mosley Attending Unavailable [facility] Unavailable [facility] [place] Primary Unavailable UNLISTED PROVIDER - REQUESTED Xhandoff Un available Results D-DIMER - Collect Date/Time: 05/19/2021 19:52 [facility] ID: [id number] [address] [place] [address], [address] LOINC: 23958-8 Test Value Unit Reference Range Code Code System Flag D-DIMER 0.44 mg/L L=0.19 H=0.50 60971-3 LOINC COMPREHENSIVE METABOLIC PANE L (CMP) - Collect Date/Time: 05/19/2021 19:45 [facility] ID: [id number] [address] [place] [address], [address] LOINC: 91082-5 Test Value Unit Reference Range Code Code System Flag GLUCOSE 105 mg/dL L=70 H=116 2345-7 LOINC BUN 9 mg/dL L=6 H=25 3094-0 LOINC CREATININE 0.79 mg/dL L=0.51 H=0.95 2160-0 LOINC SODIUM SERUM 141 mmol/L L=136 H=145 2951-2 LOINC POTASSIUM SERUM 3.5 mmol/L L=3.4 H=5.2 2823-3 LOINC CHLORIDE SERUM 107 mmol/L L=96 H=110 2075-0 LOINC CARBON DIOXIDE (CO2) 26 mmol/L L=22 H=34 8-9 LOINC ANION GAP 8.0 mmol/L 09320-9 LOINC CALCIUM SERUM 9.2 mg/dL L=8.2 H=10.2 45464-6 LOINC BILIRUBIN TOTAL 0.2 mg/dL L=0.0 H=1.3 1975-2 LOINC ALK. PHOS. 64 U/L L=46 H=116 6768-6 LOINC SGOT (AST) 20 U/L L=15 H=37 1920-8 LOINC SGPT (ALT) 28 U/L L=12 H=78 1742-6 LOINC TOTAL PROTEIN 6.5 gm/dL L=6.0 H=8.0 2885-2 LOINC ALBUMIN 3.6 gm/dL L=3.4 H=5.0 1751-7 LOINC AGE 50 years eGFR (non-Afr.Amer.) 77 mL/min 69052-5 LOINC eGFR (Afr-Slovenian) 93 mL/min 95762-6 LOINC TROPONIN-I ADM.* - Collect D ate/Time: 05/19/2021 19:45 [facility] ID: [id number] [address] [place] [address], [address] LOINC: 77675-3 Test Value Unit Reference Range Code Code System Flag TROPONIN-I < 0.017 ng/mL L=0.000 H=0.060 69390-0 LOINC CBC W/ DIFFERENTIAL* - Colle ct Date/Time: 05/19/2021 19:45 [facility] ID: [id number] [address] [place] [address], [address] LOINC: 06851-8 Test Value Unit Reference Range Code Code System Flag WBC 7.21 th/cmm L=5.00 H=10.00 6690-2 LOINC NEUT % 54.4 % L=40.0 H=80.0 LYMPH % 37.9 % L=10.0 H=50.0 MONO % 5.1 % L=2.0 H=12.0 58223-1 LOINC EOS % 1.9 % L=0.0 H=8.0 BASO % 0.4 % L=0.0 H=3.0 IG % 0.3 % L=0.0 H=1.1 2514-8 LOINC NRBC % 0.0 % L=0.0 H=0.0 03553-2 LOINC NEUT abs count 3.9 th/cmm L=1.6 H=8.4 751-8 LOINC LYMPH abs count 2.7 th/cmm L=1.5 H=4.0 731-0 LOINC MONO abs count 0.4 th/cmm L=0.2 H=1.0 742-7 LOINC EOS abs count 0.1 th/cmm L=0.0 H=0.5 711-2 LOINC BASO abs count 0.0 th/cmm L=0.0 H=0.2 704-7 LOINC IG abs count 0.0 th/cmm L=0.0 H=0.1 73544-7 LOINC NRBC abs count 0.0 mil/cmm L=0.0 H=0.0 76840-9 LOINC RBC 4.58 mil/cmm L=3.90 H=5.40 789-8 LOINC HEMOGLOBIN 13.7 gm/dL L=12.0 H=16.0 718-7 LOINC HEMATOCRIT 42 % L=37 H=47 4544-3 LOINC MCV 91 fL L=82 H=92 787-2 LOINC MCH 29.9 pg L=27.0 H=31.0 785-6 LOINC MCHC 32.9 % L=32.0 H=36.0 786-4 LOINC RDW-SD 53.7 fL L=39.0 H=49.0 788-0 LOINC H PLATELET COUNT 326 th/cmm L=150 H=450 777-3 LOINC URINALYSIS WITH REFLEX CULT IF POSITIVE* - Collect Date/Time: 05/19/2021 18:15 [facility] ID: [id number] [address] [place], [place], [address] LOINC: 48812-9 Test Value Unit Reference Range Code Code System Flag COLLECTION MODE: CLEAN CATCH Color YELLOW yellow 5778-6 LOINC Appearance CLEAR clear 5767-9 LOINC Glucose urine NEGATIVE negative mg/dl 75673-6 LOINC Bilirubin NEGATIVE negative 5770-3 LOINC Ketones NEGATIVE negative mg/dl 2514-8 LOINC Spec gravity 1.025 1.003 - 1.030 5811-5 LOINC pH urine 6.0 5.0 - 7.0 2756-5 LOINC Protein NEGATIVE negative mg/dl 77461-0 LOINC Urobilinogen 0.2 <or= 1 EU/dl 75600-8 LOINC Nitrite. NEGATIVE negative 5802-4 LOINC Blood NEGATIVE negative 5794-3 LOINC Leukocytes. TRACE negative A MICROSCOPIC INDICATED WBCs. 0-5 0-5 / hpf 84672-9 LOINC RBCs none 0-5 / hpf 24400-1 LOINC Epith cells 0-5 0-5 / hpf 13963-7 LOINC Cell types squamous Crystals calcium ox. none Bacteria minimal none Mucus none none 8247-9 LOINC Casts none none /lpf 80636-4 LOINC Other 43398-4 LOINC XR EXAM CHEST 2 VIEWS - Comp leted: 05/19/2021 07:37 LOINC: PA AND LATERAL CHEST:The hea rt is not enlarged. The lungs appear mildly hyperinflated but clear. No pleural effusion is seen. CONCLUSION:No evidence of acute process. Dictated by: DANIEL VERDIN RADIOLOGIST Transcribed by: MEL 05/20/2109:15 D Thursday, May 20, 2021 7:36:08 AM [id number] Electronically Reviewed and Signed By: DC VERDIN RADIOLOGIST 05/20/21 09:43 Copy for: 185 HEALTH INFORMATION MGMT DISCHARGED Social History Type Status Start Date End Date Code Code Syst em Smoking History Former smoker 1390228 SNOMED CT Sex Female Vital Signs Vital Sign Value Unit Guthrie Value Guthrie Unit Date/Time Recent/Initial? Code Code System Body Mass Index 25.71 kg/m2 05/19/2021 17:59 Initial 90777 -5 LOINC Systolic Blood Pressure 143 mm[Hg] 05/19/2021 18:16 Most Recent 8480- 6 LOINC Diastolic Blood Pressure 88 mm[Hg] 05/19/2021 18:16 Most Recent 8462- 4 LOINC Systolic Blood Pressure 130 mm[Hg] 05/19/2021 17:59 Initial 8480- 6 LOINC Diastolic Blood Pressure 103 mm[Hg] 05/19/2021 17:59 Initial 8462- 4 LOINC Body Surface Area 1.51 m2 05/19/2021 17:59 Initial 3140- 1 LOINC Height 147.320 0 cm 58.00 in 05/19/2021 17:59 Initial 8302- 2 LOINC O2 Saturation 98 % 2020 18:16 Most Recent 10847 -5 LOINC O2 Saturation 100 % 2020 17:59 Initial 56241 -5 LOINC Pulse 78.0 /min 05/19/2021 18:16 Most Recent 8867- 4 LOINC Pulse 72.0 /min 05/19/2021 17:59 Initial 8867- 4 LOINC Respiration 16 /min 05/19/20 18:16 Most Recent 9279- 1 LOINC Respiration 16 /min 05/19/20 17:59 Initial 9279- 1 LOINC Temperature 35.7 Evita 96.3 F 05/19/20 17:59 Initial 8310- 5 LOINC Weight 55.79 kg 123.00 lbs 05/19/2021 17:59 Initial 02394 -7 LOINC Hospital Discharge Instructions Should you have any questions prior to discharge, please contact a member of your healthcare team. If you have left the hospital and have any questions, please contact your primary care physician. Reason For Referral No Data Found Procedures Procedure Name Date Status Code Code Syste m History of gastric bypass completed 675669789 SNOMEDCT Problems Problem Start Date Resolved Date Status Code Code System MIGRAINE 05/19/2021 resolved 11403055 SNOMED-CT ANXIETY 05/19/2021 resolved 47541862 SNOMED-CT Allergies and Adverse Reactions Allergy Substance Reaction Severity Start Date Concern Status Code Code System SULFA (sulfonamide) HIVES, PT SAYS CAN TAKE CELEBREX PER ANTON (SNOMED-CT: null) Moderate Active 59058840 SNOMED-CT NAPROXEN Hives (SNOMED-CT: 669408565) Active 7258 RxNorm Plan of Treatment LAB DRAW 15MIN 04/07/2023 LAB DRAW 15MIN 07/23/2022 LAB DRAW 15MIN 04/11/2021 Encounters Encounter Diagnosis Start Date Code Code Sys tem Pleurodynia 05/19/2021 SNOMED-CT Personal Care Team Section Performer Name Performer Role Active Date Inactive Da te Imaging Narrative Notes
--- OUTSIDE RECORDS SUMMARY | 2024-07-12 10:52 | XMS_ITS | Encounter Summary ---
Author Organization [facility] Address [address] [place] [address] Care Team Providers Care Medical Reimbursement Specialist Name Role Phone Paula Deleon MD Primary Care Provider [phone]- [phone] Encounter Details Date Type Department Care Team (Late st Contact Info) Description 03/31/2021 Lab Requisition [facility] Pathology & Laboratory Medicine - [facility] [address] [place], [place] [address] Outr Resulting Lab, Provider Social History Tobacco [...] Date/Time Associated Diagnosis Comments VITAMIN B12 Routine 03/31/2021 15:50 EDT documented in this encounter Results * VITAMIN B12 (03/31/2021 15:50 EDT) Vitamin B12 868 211 - 911 pg/mL 03/31/2021 22:57 EDT [facility] Blood VENOUS BLOOD / Unknown 03/31/2021 15:50 EDT 03/31/2021 21:26 EDT us Provider Outr Resulting Lab CHEMISTRY & BLOOD GA S ORDERABLES Final Result [facility] [address] [place] [address] documented in this encounter Visit Diagnoses Not on filedocumented in this encounter Care Teams Medical Reimbursement Specialist Relationship Specialty Start Date End Date Paula Deleon MD [address] [address] PCP - General 09/29/12 documented as of this encounter
--- OUTSIDE RECORDS SUMMARY | 2024-07-12 10:52 | XMS_ITS | Encounter Summary ---
Author Organization [facility] Address [address] [place] [address] Care Team Providers Care Director Of Hospitality Name Role Phone Unavailable Primary Care Provider Unavailabl e Encounter Details Date Type Department Care Team (Late st Contact Info) Description 03/09/2003 13:53 EDT Hospital Encounter [facility] - Other [address] [place] [address] Peter Wright MD [address] [place] [address] Social History Tobacco Use Types [...] Priority Date/Time Associated Diagnosis Comments CYTOPATHOLOGY Routine 03/09/2003 0:00 EDT documented in this encounter Results * CYTOPATHOLOGY (03/09/2003 0:00 EDT) Pathology Report: CYTOPATHOLOGY REPORT Reports generated via electronic interface contain original data; however they are lacking the format of the original report. Caution should be taken when reading/interpreti ng unformatted reports. Name: ? COXAMINATA ? Accession #: ? [id number] : ? 1970 (Age: 32) ??F ?Collect Date: ? 03/09/2003 Location: ? [facility] ? Receive Date: ? 03/12/2003 Provider: ?PETER WRIGHT MD Copy to: ? Specimen/Source: ?ThinPrep Pap Test, Cervix/Endocervix Last Menstrual Period: ? Menstrual/Pregnanc y Status: ? Amenorrhea Other: ? HPVA - HPV testing requested if ASC-US on the current ThinPrep Pap test. ? SPECIMEN ADEQUACY ? Satisfactory for Evaluation - transformation zone component present GENERAL CATEGORIZATION ? Negative for Intraepithelial Lesion or Malignancy ? Document reviewed and electronically signed by: ? LOUISE Paredes(ASCP) ? Report Date: ??03/15/2003 08:26 End of Report [facility] 03/09/2003 03/12/2003 us Peter Wright MD PATHOLOGY ORDERABLES Final Result [facility] [address] [place] [address] documented in this encounter Visit Diagnoses Not on filedocumented in this encounter
--- OUTSIDE RECORDS SUMMARY | 2024-07-12 10:52 | XMS_ITS | Encounter Summary ---
Author Organization [facility] Address [address] [place] [address] Care Team Providers Care Shelf Filler Name Role Phone Paula Deleon MD Primary Care Provider +1- [phone] Encounter Details Date Type Department Care Team (Late st Contact Info) Description 07/26/2013 Results Only [facility] [address] [place] [id number] Paula Deleon MD [address] [address] Social History Tobacco Use Types Packs/Day Years [...] Procedure Name Priority Date/Time Associated Diagnosis Comments PAP TEST- RESULT ONLY Routine 07/26/2013 0:00 EST documented in this encounter Results * PAP TEST- RESULT ONLY (07/26/2013 0:00 EST) Pathology Report: CYTOPATHOLOGY REPORT Reports generated via electronic interface contain original data; however they are lacking the format of the original report. Caution should be taken when reading/interpreti ng unformatted reports. Name: ? CHASITY AMINATA ? Accession #: ? [id number] ? : ? 1970 (Age: 43) ??F ?Collect Date: ? 07/26/2013 ? Location: ? [facility] ? Receive Date: ? 07/27/2013 ? Provider: PAULA DELEON MD Copy to: ? Final Report SPECIMEN ADEQUACY ? Satisfactory for Evaluation - transformation zone component present GENERAL CATEGORIZATION ? Negative for Intraepithelial Lesion or Malignancy ?? Specimen/Source: ??Pap Test, Cervix, ThinPrep Imaging System with manual evaluation Document reviewed and electronically signed by: ? LOUISE Looney(ASCP) ? Report ??Date: 08/03/2013 16:11 HPV with Pap Test ? Date Ordered: ? 08/03/2013 ? Status: ?? Signed Out ?Date Complete: ? 08/07/2013 ? By: ??System Interface ? Date Reported: ? 08/07/2013 ? Interpretation RESULT: Negative for HPV. No E6 or E7 mRNA is detected from HPV types 16,18,31,33,35, 39,45,51,52,56,58, 59,66, and 68 by insurance defense attorney mediated amplification. Comments Document reviewed and electronically signed by: ? System Interface ? Report date: 08/07/2013 By the signature above, the attending physician certifies that he/she has personally conducted a gross and/or microscopic examination of the described specimens and rendered or confirmed the above diagnosis. End of Report [facility] 07/26/2013 07/27/2013 us Paula Deleon MD PATHOLOGY ORDERABLES Final Result [facility] [address] [place] [address] documented in this encounter Visit Diagnoses Not on filedocumented in this encounter Care Teams Shelf Filler Relationship Specialty Start Date End Date Paula Deleon MD [address] [address] PCP - General 09/29/12 documented as of this encounter
--- OUTSIDE RECORDS SUMMARY | 2024-07-12 10:52 | XMS_ITS | Encounter Summary ---
Author Organization [facility] Address [address] [place] [address] Care Team Providers Care Tube Bender Name Role Phone Unavailable Primary Care Provider Unavailabl e Encounter Details Date Type Department Care Team (Late st Contact Info) Description 12/12/2001 8:23 EDT Hospital Encounter [facility] - Other [address] [place] [address] Peter Wright MD [address] [place] [phone] Unknown, Provider, Social History Tobacco Use Types [...] Priority Date/Time Associated Diagnosis Comments CYTOPATHOLOGY Routine 12/12/2001 0:00 EDT documented in this encounter Results * CYTOPATHOLOGY (12/12/2001 0:00 EDT) Pathology Report: CYTOPATHOLOGY REPORT Reports generated via electronic interface contain original data; however they are lacking the format of the original report. Caution should be taken when reading/interpreti ng unformatted reports. Name: ? AMINATA COX ? Accession #: ? [id number] : ? 1970 (Age: 31) ??F ?Collect Date: ? 12/12/2001 Location: ? [facility] ? Receive Date: ? 12/16/2001 Provider: ?PETER WRIGHT MD Copy to: ? Specimen/Source: ?Conventional Pap Test, Cervix Last Menstrual Period: ? 12/05/01 Hormonal/Contracep tive Status: ? Yes: Triphase ? SPECIMEN ADEQUACY ? Satisfactory for Evaluation - transformation zone component present GENERAL CATEGORIZATION ? Negative for Intraepithelial Lesion or Malignancy ? Document reviewed and electronically signed by: ? Chris Sarah, CT(ASCP) ? Report Date: ??12/21/2001 09:05 End of Report [facility] 12/12/2001 12/16/2001 us Peter Wright MD PATHOLOGY ORDERABLES Final Result [facility] [address] [place] [address] documented in this encounter Visit Diagnoses Not on filedocumented in this encounter
--- OUTSIDE RECORDS SUMMARY | 2024-07-12 10:52 | XMS_ITS | Encounter Summary ---
Author Organization [facility] Address [address] [place] [address] Care Team Providers Care Boat Puller Name Role Phone Unavailable Primary Care Provider Unavailbella e Encounter Details Date Type Department Care Team (Late st Contact Info) Description 03/25/2005 Results Only [facility] General Surgery - [facility] [address] [place], [place] [address] Yamilka Matias MD [address] [place] [phone] Social History Tobacco Use Types Packs/Day Years [...] Procedure Name Priority Date/Time Associated Diagnosis Comments SURGICAL PATHOLOGY Routine 03/25/2005 0:00 EDT documented in this encounter Results * SURGICAL PATHOLOGY (03/25/2005 0:00 EDT) Pathology Report: SURGICAL PATHOLOGY REPORT Reports generated via electronic interface contain original data; however they are lacking the format of the original report. Caution should be taken when reading/interpreti ng unformatted reports. Name: ? AMINATA COX ? Accession #: ? [id number] ? : ? 1970 (Age: 34) ??F ? Collect Date: ? 03/25/2005 ? Location: ? B006 ? Receive Date: ? 03/25/2005 ? Provider: YAMILKA MATIAS MD Copy to: DEL WRIGHT MD ? Final Pathologic Diagnosis: ? Gallbladder, cholecystectomy: 1. ?Mild chronic cholecystitis. 2. ?Cholesterolosis. 3. ?One cystic duct lymph node with reactive features. Document reviewed and electronically signed by: CAROLE BRAND MD Report ??Date: 03/27/2005 17:26 By the signature above, the attending physician certifies that he/she has personally conducted a gross and/or microscopic examination of the described specimens and rendered or confirmed the above diagnosis. Specimen(s) Received: ? Gallbladder Clinical History: ? Morbid obesity, GERD Gross Description: ? Received fresh in dark green bile labelled Cox and gallbladder is a gallbladder which is received open which measures 9.0 cm in length by 2.0 cm in diameter and includes a short segment of cystic duct which measures 0.8 cm in length by 0.2 cm in diameter. ??The cystic duct is of normal caliber and there is an ovoid, gould-pink, firm, possible cystic duct lymph node which measures 0.8 x 0.5 x 0.4 cm. ??The mucosa of the gallbladder is diffusely studded with slightly raised light yellow flecks and is otherwise light gould. ??The gallbladder wall measures 0.2 cm in thickness. ??The serosa is smooth, gould-pink and focally yellow. ??There are no calculi received. ??Three goodwill representative sections of the gallbladder are submitted as (A1) and the bisected possible cystic duct lymph node is submitted as (A2). (Melany Landis)/mpl End of Report [facility] 03/25/2005 03/25/2005 14: 06 EDT us Yamilka Matias MD PATHOLOGY ORDERABLES Final R esult [facility] [address] [place] [address] documented in this encounter Visit Diagnoses Not on filedocumented in this encounter
--- OUTSIDE RECORDS SUMMARY | 2024-07-12 10:52 | XMS_ITS | Referral Summary ---
Author Organization [facility] Address [address] [place] [address] Care Team Providers Care Fashion Director Party Plan Sales Name Role Phone Paula Deleon MD Primary Care Provider +1- [phone] Allergies Active Allergy Reactions Criticality Noted Date Comments Sulfa (Sulfonamide Antibiotics) Hives 10/2012 Medications omeprazole (PRILOSEC) 20 mg capsule Take 40 mg by mouth daily. Active escitalopram (LEXAPRO) 20 mg tablet Take 40 mg by mouth daily. Active topiramate (TOPAMAX) 100 mg tablet Take 100 mg by mouth daily. Active Calcium 600 mg cap Take 600 mg by mouth daily. Active IRON/B CPLX/B12/LIVER EXTRACT (I.L.X. B-12 ORAL) Take 500 mg by mouth daily. Active aspirin chewable 81 mg tablet Take 81 mg by mouth daily. Active MULTIVIT &MINERALS/PAULIE US FUM (MULTI VITAMIN ORAL) Take by mouth daily. Active zolpidem (AMBIEN) 10 mg tablet Take 10 mg by mouth at bedtime as needed. Active rizatriptan (MAXALT) 10 mg tablet Take 10 mg by mouth once as needed. May repeat in 2 hours if needed Active Active Problems Problem Noted Date Diagnosed Date Osteoarthrosis 11/20/2010 Low back pain 11/20/2010 Cobalamin deficiency 11/20/2010 Social History Tobacco Use Types Packs/Day Years [...] 15:42 EST Sexual Orientation Not on file Last Filed Vital Signs Vital Sign Reading Time Taken Comments Blood Pressure 110/80 10/03/2012 1223 EDT Pulse 68 10/03/2012 1223 EDT Temperature - - Respiratory Rate 14 10/03/2012 1223 EDT Oxygen Saturation - - Inhaled Oxygen Concentration - - Weight 59 kg (130 lb) 08/18/2023 0807 EDT Height 149.2 cm (4' 10.75) 08/18/2023 0807 EDT Body Mass Index 26.48 08/18/2023 0807 EDT Plan of Treatment Not on file Procedures Procedure Name Priority Date/Time Associated Diagnosis Comments CT CHEST LOW DOSE LUNG SCREENING Routine 07/01/2022 8:55 EST Nicotine dependence, cigarettes, uncomplicated from Last 3 Months or Most Recently Relevant to Health Maintenance Results * CT CHEST LOW DOSE LUNG SCREENING (07/01/2022 8:55 EST) Anatomical Region Laterality Modality Chest Computed Tomogra phy 07/01/2022 10:3 9 EST Impressions 07/01/2022 11:47 EST 1. LungRADS Category 2: Benign. ?? 2. LungRADS Category S: Negative. No clinically significant or potentially clinically significant nonlung cancer findings requiring urgent additional evaluation. 3. Incidental findings: As above. RECOMMENDATIONS: Continue annual screening with low-dose CT in 12 months Continued ??low dose CT lung cancer screening should be based upon continued eligibility determined from age and smoking history. This report utilizes the CT Lung Screening Reporting and Data System (ACR LungRADS version 2021) as below: Category 0: Incomplete (part or all of lung cannot be evaluated, or prior chest CT being located for comparison) Category 1: Negative (no nodules or definitely benign nodules) Category 2: Benign appearance or behavior (nodules with very low likelihood of becoming a clinically active cancer, risk of malignancy <1%) Category 3: Probably benign (probably benign finding - short term follow up suggested, risk of malignancy 1-2%) Category 4: Suspicious (additional diagnostic testing or tissue sampling recommended) Modifiers to Categories 1-4: Category S: Potentially significant ancillary finding requiring urgent additional evaluation. Narrative 07/01/2022 11:[address] CHEST LOW DOSE LUNG SCREENING 07/01/2022 9:00 AM CLINICAL HISTORY/COMMENTS: NICOTINE DEPENDENCE, CIGARETTES, UNCOMPLICATED TECHNIQUE: A single breath-hold helical CT acquisition was performed through the chest on a multidetector-row scanner with a reconstructed slice thickness of 3 mm and retrospectively reconstructed 0.9 mm thick sections with 0.45 mm overlapping intervals. ??The scans were obtained from the lung apices through the bases without IV contrast. Dose was adjusted between 1.0 and 1.5 milliSieverts for low dose screening purposes. Scans were reviewed on a dedicated PACS workstation for analysis. EXAM DESCRIPTION: LOW DOSE CHEST CT FOR LUNG CANCER SCREENING (INITIAL OR FOLLOW-UP). COMPARISON: None. This is a baseline examination. FINDINGS: LUNG SCREENING SPECIFIC (LUNGRADS) FINDINGS: * ??Few scattered calcified and noncalcified sub-6 mm pulmonary nodules (for example 2mm left upper lobe calcified granuloma series 205, image 130 and 2mm right upper lobe noncalcified nodule series 205, image 64).. POTENTIALLY SIGNIFICANT INCIDENTALS (LUNGRADS CATEGORY S): None. PULMONARY INCIDENTALS: * ??Mild large airways thickening. * ??Mild emphysema. * ??Minimal atelectasis.. ?? OTHER INCIDENTALS: * ??Post gastric bypass * ??Mild degenerative spondylosis. ACR REPORTABLE INCIDENTALS: None. Tiffani Fitzgerald MD [facility] [place]LES Fin al Result from Last 3 Months or Most Recently Relevant to Health Maintenance Insurance [facility] BLUE [facility] BLUE Care Teams Fashion Director Party Plan Sales Relationship Specialty Start Date End Date Paula Deleon MD [address] [address] PCP - General 09/29/12
--- OUTSIDE RECORDS SUMMARY | 2024-07-12 10:52 | XMS_ITS | Clinical Summary ---
Author Organization [facility] Address [address] [place] [address] Care Team Providers Care Dethistler Operator Name Role Phone Paula Deleon MD Primary Care Provider +1- [phone] Allergies Active Allergy Reactions Criticality Noted Date [...] Low back pain 11/20/2010 Cobalamin deficiency 11/20/2010 Surgical History Surgery Date Site/Laterality Comments CHOLECYSTECTOMY, OPEN 03/25/2005 GASTRIC BYPASS SURGERY 03/25/2005 Medical History Medical History Date Comments GERD (gastroesophageal reflux disease) Stress incontinence Family History Medical History Relation Comments Breast Cancer Maternal Aunt Breast Cancer Maternal Grandmother Ovarian Cancer Mother Breast Cancer Paternal Grandmother Relation Status Comments Maternal Aunt Maternal Grandmother Mother Paternal Grandmother Social History Tobacco Use Types Packs/Day Years [...] 15:42 EST Sexual Orientation Not on file Obstetrics History Para Term AB IAB SAB Ectopic Multiple Livin g Live Births 1 05 31 Date Outcome GA Total Labor Labor//3rd Weight Sex Type Anes PTL Citlalli A1 A5 Name Clin Para Last Filed Vital Signs Vital Sign Reading [...] 26.48 08/18/2023 0807 EDT Plan of Treatment Health Maintenance Due Date Last Done Comments Hepatitis C Screen 1970 Hepatitis B Vaccine (1 of 3 - 19+ 3-dose series) 06/22 Lung Cancer Screening 07/01/2023 07/01/2022 COVID-19 Vaccine ( season) 2024 Procedures Procedure Name Priority Date/Time Associated Diagnosis [...] ACR REPORTABLE INCIDENTALS: None. Tiffani Fitzgerald MD IMG CT ORDERABLES Fin al Result from Last 3 Months or Most Recently Relevant to Health Maintenance Insurance [facility] Care Teams Dethistler Operator Relationship Specialty Start Date End Date Paula Deleon MD [address] [address] PCP - General 09/29/12
--- OUTSIDE RECORDS SUMMARY | 2024-07-12 10:52 | XMS_ITS | Encounter Summary ---
Author Organization [facility] Address [address] [place] [address] Care Team Providers Care Merchant Mill Utility Worker Name Role Phone Paula Deleon MD Primary Care Provider +1- [phone] Encounter Details Date Type Department Care Team (Late st Contact Info) Description 05/07/2022 Lab Requisition [facility] Pathology & Laboratory Medicine - [facility] [address] [place], [place] [address] Outr Resulting Lab, Provider Social History Tobacco [...] Procedure Name Priority Date/Time Associated Diagnosis Comments PTH INTACT Routine 05/07/2022 10:45 EST FSH Routine 05/07/2022 10:45 EST documented in this encounter Results * PTH INTACT (05/07/2022 10:45 EST) Intact PTH 41 19 - 88 pg/mL 05/08/2022 10:15 EST [facility] Blood VENOUS BLOOD / Unknown 05/07/2022 10:45 EST 05/07/2022 21:21 EST us Provider Outr Resulting Lab CHEMISTRY & BLOOD GA S ORDERABLES Final Result Performing Organization Address [facility] de Phone Number [facility] [address] [place] [address] * FSH (05/07/2022 10:45 EST) FSH 73.2 See Note mIU/mL 05/08/2022 10:11 EST [facility] Blood VENOUS BLOOD / Unknown 05/07/2022 10:45 EST 05/07/2022 21:21 EST Narrative [facility] - 05/08/2022 10:11 EST NOTE: Female FSH Reference Ranges (Menstruating): PHYSIOLOGICAL STATUS ? REFERENCE RANGE ? Follicular (-12 to -4 days): ?? 2.5 - 10.2 mIU/mL Midcycle (-3 to +2 days): ?3.4 - 33.4 mIU/mL Luteal (+4 to +12 days): ? 1.5 - 9.1 mIU/mL Postmenopausal: ?23.0 - 116.3 mIU/mL Reference Ranges for pediatric non-menstruating female patients have not been established. us Provider Outr Resulting Lab CHEMISTRY & BLOOD GA S ORDERABLES Final Result Performing Organization Address [facility] Co de Phone Number [facility] [address] [place] [address] documented in this encounter Visit Diagnoses Not on filedocumented in this encounter Care Teams Merchant Mill Utility Worker Relationship Specialty Start Date End Date Paula Deleon MD [address] [address] PCP - General 09/29/12 documented as of this encounter
--- OUTSIDE RECORDS SUMMARY | 2024-07-12 10:52 | XMS_ITS | Encounter Summary ---
Author Organization [facility] Address [address] [place] [address] Care Team Providers Care Siphoner Name Role Phone Unavailable Primary Care Provider Unavailabl e Encounter Details Date Type Department Care Team (Late st Contact Info) Description 03/06/2005 10:44 EDT Hospital Encounter [facility] [address] [place] [address] Yamilka Matias MD [address] [place] [phone] Social History Tobacco Use Types Packs/Day Years [...]
--- OUTSIDE RECORDS SUMMARY | 2024-07-12 10:52 | XMS_ITS | Encounter Summary ---
Author Organization [facility] Address [address] [place] [address] Care Team Providers Care Dragger Out Name Role Phone Unavailable Primary Care Provider Unavailabl e Encounter Details Date Type Department Care Team (Late st Contact Info) Description 06/16/2005 9:33 EST Hospital Encounter [facility] [address] [place] [address] Yamilka Matias MD [address] [place] [phone] Social History Tobacco Use Types Packs/Day [...] Date/Time Associated Diagnosis Comments VITAMIN B12 Routine 06/17/2005 11:19 EST documented in this encounter Results * VITAMIN B12 (06/17/2005 11:19 EST) Vitamin B-12 512 250 - 1100 pg/ml [facility] 06/17/2005 11:1 9 EST 06/17/2005 21:13 EST us Provider Unknown CHEMISTRY & BLOOD GAS ORDERA BLES Final Result Performing Organization Address City/State/[facility] Co de Phone Number [facility] [address] [place] [address] documented in this encounter Visit Diagnoses Not on filedocumented in this encounter
--- OUTSIDE RECORDS SUMMARY | 2024-07-12 10:52 | XMS_ITS | Encounter Summary ---
Author Organization [facility] Address [address] [place] [address] Care Team Providers Care Narrow Gauge Operator Name Role Phone Peter Omer MD Primary Care Provider Reason for Visit * Reason Onset Date Comments New Patient Visit 09/09/2012 Spoke with rubi orozco, let her know she is all set up to see Dr. Dorcas Armstrong on Wednesday, October 03, 2012 at 12:00 pm, gave her directions and told her she would be getting paperwork in the mail. Spoke with [facility], let them know about the appointment. Encounter Details Date Type Department Care Team (Late st Contact Info) Description 09/09/2012 Telephone [facility] Cancer Center Hematology & Oncology - [place] [address] [place] [address] Dorcas Armstrong MD New Patient Visit (Spoke with patient, let her know she is all set up to see Dr. Dorcas Armstrong on Wednesday, October 03, 2012 at 12:00 pm, gave her directions and told her she would be getting paperwork in the mail. Spoke with [facility], let them know about the appointment.) Social History Tobacco Use Types Packs/Day Years Used Date Smoking Tobacco: Never Assessed Comments Unknown Sex and Gender Information Value Date Recorded Sex Assigned at Not on file Legal Sex Female 17:59 EST Gender Identity Female 05/18/2022 15:42 EST Sexual Orientation Not on file documented as of this encounter Miscellaneous Notes * Telephone Encounter - Jodi Jones - 09/09/2012 1450 EDT Spoke with patient, let her know she is all set up to see Dr. Dorcas Armstrong on Wednesday, October 03, 2012 at 12:00 pm, gave her directions and told her she would be getting paperwork in the mail. Spoke with [facility], let them know about the appointment. documented in this encounter Plan of Treatment Not on file documented as of this encounter Visit Diagnoses Not on filedocumented in this encounter Care Teams Narrow Gauge Operator Relationship Specialty Start Date End Date Peter Omer MD [address] [place] [address] PCP - General 09/07/12 09/28/12 documented as of this encounter
--- OUTSIDE RECORDS SUMMARY | 2024-07-12 10:52 | XMS_ITS | Encounter Summary ---
Author Organization [facility] Address [address] [place] [address] Care Team Providers Care Environmental Science Instructor Name Role Phone Peter Omer MD Primary Care Provider Reason for Visit * Reason Onset Date Comments New Patient Visit 09/07/2012 high platelets count New Patient Visit 09/07/2012 Spoke with off ice, let them know that I have not received the records yet, they send they would send them right over. Called the patient back to let her know what was going on and told her I would call her back as soon as I knew something. Encounter Details Date Type Department Care Team (Late st Contact Info) Description 09/07/[address] [facility] Cancer Center Hematology & Oncology - [facility] [address] [place], [place] [phone] Paula Deleon MD [address] [id number] New Patient Visit (high platelets count); New Patient Visit (Spoke with office, let them know that I have not received the records yet, they send they would send them right over. Called the patient back to let her know what was going on and told her I would call her back as soon as I knew something.) Social History Tobacco Use Types Packs/Day Years Used Date Smoking Tobacco: Never Assessed Comments Unknown Sex and Gender Information Value Date Recorded Sex Assigned at Not on file Legal Sex Female 17:59 EST Gender Identity Female 05/18/2022 15:42 EST Sexual Orientation Not on file documented as of this encounter Miscellaneous Notes * Telephone Encounter - Jodi Jones - 09/07/2012 1442 EDT Spoke with office, let them know that I have not received the records yet, they send they would send them right over. Called the patient back to let her know what was going on and told her I would call her back as soon as I knew something. * Telephone Encounter - Emy Bradford - 09/07/[address] [place] [phone] a few days [place]. Pt is being referred for high plateletcount and needs to be scheduled. Dr. Deleon's phone is [phone]. documented in this encounter Plan of Treatment Not on file documented as of this encounter Visit Diagnoses Not on filedocumented in this encounter Care Teams Environmental Science Instructor Relationship Specialty Start Date End Date Peter Omer MD [address] [place] [address] PCP - General 09/07/12 09/28/12 documented as of this encounter
--- OUTSIDE RECORDS SUMMARY | 2024-07-12 10:52 | XMS_ITS | Encounter Summary ---
Author Organization [facility] Address [address] [place] [address] Care Team Providers Care Rodent Exterminator Name Role Phone Paula Deleon MD Primary Care Provider +1- [phone] Reason for Referral * Radiology Services (Routine/Next Available) - Closed Specialty Diagnoses / Procedures Referred By Contac t Referred To Contact Diagnoses Nicotine dependence, cigarettes, uncomplicated Procedures CT CHEST LOW DOSE LUNG SCREENING Tiffani Fitzgerald MD 4 [facility] [address] [place] [address] Phone: tel: fax: [facility] Referral ID Status Reason Start Date Expiration Date Visits Re quested Visits Authorized [id number] Closed 05/12/2022 11/08/2022 1 1 Reason for Visit * Radiology Services (Routine/Next Available) - Closed Specialty Diagnoses / Procedures Referred By Bri sun Referred To Contact Diagnoses Nicotine dependence, cigarettes, uncomplicated Procedures CT CHEST LOW DOSE LUNG SCREENING Tiffani Fitzgerald MD 4 [facility] [address] [place] [address] Phone: tel: fax: [facility] Referral ID Status Reason Start Date Expiration Date Visits Re quested Visits Authorized [id number] Closed 05/12/2022 11/08/2022 1 1 Encounter Details Date Type Department Care Team (Latest Contact Info) Description 07/01/2022 8:23 EST - 07/01/2022 23:59 EST Hospital Encounter [facility] CT Scan [address] [place] [address] Nicotine dependence, cigarettes, uncomplicated Discharge Disposition: Home or Self Care Social [...] on file documented as of this encounter Medications at Time of Discharge [...] 07/01/2022 8:55 EST Nicotine dependence, cigarettes, uncomplicated documented in this encounter Results * CT CHEST LOW DOSE LUNG [...] MD IMG CT ORDERABLES Fin al Result documented in this encounter Visit Diagnoses Diagnosis Nicotine dependence, cigarettes, uncomplicated documented in this encounter Care Teams Rodent Exterminator Relationship Specialty Start Date End Date Paula Deleon MD [address] [address] PCP - General 09/29/12 documented as of this encounter
--- OUTSIDE RECORDS SUMMARY | 2024-07-12 10:52 | XMS_ITS | Encounter Summary ---
Author Organization [facility] Address [address] [place] [address] Care Team Providers Care Model And Mold Maker Name Role Phone Peter Omer MD Primary Care Provider Paula Deleon MD Primary Care Provider +1- [phone] Encounter Details Date Type Department Care Team (Late st Contact Info) Description 11/20/2010 Documentation Visit [facility] Bariatric Surgery - [place] [address] [place], [place] [phone] Delaney Sarkar, SALES OPERATIONS DIRECTOR [address] [address] Social History Tobacco Use Types Packs/Day Years [...] - Inhaled Oxygen Concentration - - Weight - - Height 151 cm (4' 11.45) 11/20/2010 0800 EDT Body Mass Index - - documented in this encounter Plan of Treatment Not on file documented as of this encounter Visit Diagnoses Not on filedocumented in this encounter Care Teams Model And Mold Maker Relationship Specialty Start Date End Date Peter Omer MD [address] [place] [address] BRITTANIE LOTT [phone] PCP - General 09/07/12 09/28/12 Paula Deleon MD [address] [address] PCP - General 09/29/12 documented as of this encounter
--- OUTSIDE RECORDS SUMMARY | 2024-07-12 10:52 | XMS_ITS | Encounter Summary ---
Author Organization [facility] Address [address] [place] [address] Care Team Providers Care Sign Hanger Supervisor Name Role Phone Paula Deleon MD Primary Care Provider +1- [phone] Encounter Details Date Type Department Care Team (Late st Contact Info) Description 10/31/2018 Results Only [facility] [phone] Marisa Moyer MD [address] [id number] Social History Tobacco Use Types Packs/Day Years [...] Diagnosis Comments PAP TEST- RESULT ONLY Routine 10/31/2018 0:00 EDT documented in this encounter Results * PAP TEST- RESULT ONLY (10/31/2018 0:00 EDT) Pathology Report: CYTOPATHOLOGY REPORT Reports generated via electronic interface contain original data; however they are lacking the format of the original report. Caution should be taken when reading/interpreti ng unformatted reports. Name: ? AMINATA COX ? Accession #: ? [id number] ? : ? 1970 (Age: 48) ??F ?Collect Date: ? 10/31/2018 ? Location: ? [facility] ? Receive Date: ? 11/01/2018 ? Provider: MARISA MOYER MD Copy to: ? Final Report SPECIMEN ADEQUACY ? Satisfactory for Evaluation - transformation zone component present GENERAL CATEGORIZATION ? Negative for Intraepithelial Lesion or Malignancy ?? Hormonal/Contracep tive status: Intrauterine device Other: Additional clinical information: Z12.4 Specimen/Source: ??Pap Test, Vagina/Cervix, ThinPrep Imaging System with manual evaluation Document reviewed and electronically signed by: ? LOUISE Ace(ASCP) ? Report ??Date: 11/02/2018 14:08 HPV with Pap Test ? Date Ordered: ? 11/02/2018 ? Status: ?? Signed Out ?Date Complete: ? 11/03/2018 ? By: ??System Interface ? Date Reported: ? 11/03/2018 ? Interpretation RESULT: Negative for HPV. No E6 or E7 mRNA is detected from HPV types 16,18,31,33,35, 39,45,51,52,56,58, 59,66, and 68 by small kick press operator mediated amplification. Comments Document reviewed and electronically signed by: ? System Interface ? Report date: 11/03/2018 By the signature above, the attending physician certifies that he/she has personally conducted a gross and/or microscopic examination of the described specimens and rendered or confirmed the above diagnosis. End of Report [facility] 10/31/2018 11/01/2018 us Marisa Moyer MD PATHOLOGY ORDERABLES Final Resul t [facility] [address] [place] [address] documented in this encounter Visit Diagnoses Not on filedocumented in this encounter Care Teams Sign Hanger Supervisor Relationship Specialty Start Date End Date Paula Deleon MD [address] [address] PCP - General 09/29/12 documented as of this encounter
--- OUTSIDE RECORDS SUMMARY | 2024-07-12 10:52 | XMS_ITS | Encounter Summary ---
Author Organization [facility] Address [address] [place] [address] Care Team Providers Care Manager College Name Role Phone Unavailable Primary Care Provider Milanaabl e Encounter Details Date Type Department Care Team (Late st Contact Info) Description 01/03/2007 Results Only [facility] - Map conversion [address] [place] [address] Peter Wright MD [address] [place] [phone] Social History Tobacco Use Types Packs/Day Years [...] Priority Date/Time Associated Diagnosis Comments CYTOPATHOLOGY Routine 01/03/2007 0:00 EDT documented in this encounter Results * CYTOPATHOLOGY (01/03/2007 0:00 EDT) Pathology Report: CYTOPATHOLOGY REPORT Reports generated via electronic interface contain original data; however they are lacking the format of the original report. Caution should be taken when reading/interpreti ng unformatted reports. Name: ? AMINATA COX ? Accession #: ? [id number] : ? 1970 (Age: 36) ??F ?Collect Date: ? 01/03/2007 Location: ? [facility] ? Receive Date: ? 01/04/2007 Provider: ?PETER WRIGHT MD Copy to: ? Specimen/Source: ?ThinPrep Pap Test, Cervix, processed on eMagin ThinPrep Imaging System, with manual evaluation Last Menstrual Period: ? Other: ? HPVA - HPV testing requested if ASC-US on the current ThinPrep Pap test. ? SPECIMEN ADEQUACY ? Satisfactory for Evaluation - transformation zone component present GENERAL CATEGORIZATION ? Negative for Intraepithelial Lesion or Malignancy ? Document reviewed and electronically signed by: ? LOUISE Freeman(ASCP) ? Report Date: ??01/06/2007 10:51 End of Report [facility] 01/03/2007 01/04/2007 us Peter Wright MD PATHOLOGY ORDERABLES Final Result [facility] [address] [place] [address] documented in this encounter Visit Diagnoses Not on filedocumented in this encounter
--- OUTSIDE RECORDS SUMMARY | 2024-07-12 10:52 | XMS_ITS | Encounter Summary ---
Author Organization [facility] Address [address] [place] [address] Care Team Providers Care Wheel Cutter Name Role Phone Unavailable Primary Care Provider Unavailabl e Encounter Details Date Type Department Care Team (Late st Contact Info) Description 11/20/2010 Abstract [facility] Bariatric Surgery - [place] [address] [place], [place] [address] Delaney Sarkar, INDUSTRIAL DESIGN INTERN 61 [facility] 4 [facility] [address] [place], [place] [address] Social History Tobacco Use Types Packs/Day Years [...]
--- OUTSIDE RECORDS SUMMARY | 2024-07-12 10:52 | XMS_ITS | Encounter Summary ---
Author Organization [facility] Address [address] [place] [address] Care Team Providers Care Websphere Portal Architect Name Role Phone Unavailable Primary Care Provider Unavailabl e Encounter Details Date Type Department Care Team (Late st Contact Info) Description 09/11/2009 Results Only [facility] - [facility] [address] [place] [phone] Paula Deleon MD [address] [phone] Social History Tobacco Use Types Packs/Day Years [...] Procedure Name Priority Date/Time Associated Diagnosis Comments HPV DETECTION, HIGH RISK TYPES Routine 09/11/2009 10:58 EDT HPV DETECTION, HIGH RISK TYPES Routine 09/11/2009 10:58 EDT CYTOPATHOLOGY Routine 09/11/2009 0:00 EDT documented in this encounter Results * HUMAN PAPILLOMA VIRUS DNA TEST (09/11/2009 10:58 EDT) Specimen Description Cervix, ThinPrep vial [facility] Result Negative for HPV types 16, 18, 31, 33, 35, 39, 45, 51, 52, 56, 58, 59, and 68. [facility] Report Status Final 09/23/2009 [facility] 09/11/2009 10:5 8 EDT 09/18/2009 21:26 EDT us Paula Deleon MD MICROBIOLOGY - GENERAL ORD ERABLES Final Result Performing Organization Address [facility] de Phone Number [facility] [address] [place] [address] * HUMAN PAPILLOMA VIRUS DNA TEST (09/11/2009 10:58 EDT) Specimen Description Cervix, ThinPrep vial [facility] Result Ordered in error Credit Issued [facility] Report Status Final 09/18/2009 [facility] 09/11/2009 10:5 8 EDT 09/18/2009 21:18 EDT us Paula Deleon MD MICROBIOLOGY - GENERAL ORD ERABLES Final Result Performing Organization Address [facility] de Phone Number [facility] [address] [place] [address] * CYTOPATHOLOGY (09/11/2009 0:00 EDT) Pathology Report: CYTOPATHOLOGY REPORT ? Reports generated via electronic interface contain original data; ? however they are lacking the format of the original report. ? Caution should be taken when reading/interpreti ng unformatted reports. ? Name: ? AMINATA COX ? Accession #: ? [id number] ? : ? 1970 (Age: 39) ??F ?Collect Date: ? 09/11/2009 ? Location: ? [facility] ? Receive Date: ? 09/12/2009 ? Provider: ?PAULA DELEON MD ? Copy to: ? Specimen/Source: ?Pap Test, Cervix, ThinPrep Imaging System with manual ?? evaluation ? Last Menstrual Period: ? Other: ? HPVDX - HPV testing requested regardless of diagnosis on current ThinPrep Pap ?? test. ? SPECIMEN ADEQUACY ? Satisfactory for Evaluation ? - transformation zone component present ? GENERAL CATEGORIZATION ? Negative for Intraepithelial Lesion or Malignancy ? Document reviewed and electronically signed by: ? Rebecca Walsh, SCT(ASCP) ? Report Date: ??09/18/2009 09:10 ? End of Report ? [facility] 09/11/2009 09/12/2009 us Paula Deleon MD PATHOLOGY ORDERABLES Final Result [facility] [address] [place] [address] documented in this encounter Visit Diagnoses Not on filedocumented in this encounter
--- OUTSIDE RECORDS SUMMARY | 2024-07-12 10:53 | XMS_ITS ---
Author Organization Unknown Address [address], [place] [phone] Phone Care Team Providers Care Retail Pharmacy Manager Name Role Phone MARCELLE Navarrete Attending Unavailable LELIA Dial Primary Unavailable Social History Type Status Start Date End Date Code Code Syst em Smoking History Former smoker 3192079 SNOMED CT Sex Female Hospital Discharge Instructions Should you have any questions prior to discharge, please contact a member of your healthcare team. If you have left the hospital and have any questions, please contact your primary care physician. Reason For Referral No Data Found Procedures Procedure Name Date Status Code Code Syste m Colsc Flx w/Rmvl Of Tumor Po lyp Lesion Snare Tq 08/05/2023 completed 09743 CPT Problems Problem Start Date Resolved Date Status Code Code System MIGRAINE 05/19/2021 resolved 56822319 SNOMED-CT ANXIETY 05/19/2021 resolved 22970020 SNOMED-CT Allergies and Adverse Reactions Allergy Substance Reaction Severity Start Date Concern Status Code Code System SULFA (sulfonamide) HIVES, PT SAYS CAN TAKE CELEBREX PER ANTON (SNOMED-CT: null) Moderate Active 99329125 SNOMED-CT NAPROXEN Hives (SNOMED-CT: 127450513) Active 7258 RxNorm Plan of Treatment LAB DRAW 15MIN 04/07/2023 LAB DRAW 15MIN 07/23/2022 LAB DRAW 15MIN 04/11/2021 Encounters Encounter Diagnosis Start Date Code Code Sys tem Encounter for screening for malignant neoplasm of colo n 08/05/2023 SNOMED-CT Personal Care Team Section Performer Name Performer Role Active Date Inactive Da te Laboratory Narrative Notes [facility] 09/09/2023 03:47 [facility] [address] [place] [address] PATHOLOGY REPORT Name: CHASITY Ball : 1970 (AGE:53) F Order Phys: MARCELLE Navarrete Admit Phys: MARCELLE Navarrete Collected Date: 08/05/23 09:27 Order #: [id number] Received Date: 08/06/23 09:27 Primary Care: [facility] Unsigned Transcriptions represent a preliminary report and do not represent a medical or legal document FINAL PATHOLOGIC DIAGNOSIS: A. Colon, ascending, polyp, biopsy: Hyperplastic polyp. B. Colon, transverse, polyp, biopsy: Tubular adenoma x2. Negative for high-grade dysplasia or carcinoma. C. Colon, descending, polyp, biopsy: Tubular adenoma. Negative for high grade dysplasia or carcinoma. D. Colon, sigmoid, polyp, biopsy: Tubular adenoma. Negative for high-grade dysplasia or carcinoma. E. Colon, rectum, polyp, biopsy: Hyperplastic polyp x3. Reviewed and Electronically Signed by: BERNY ALMAZAN MD PATHOLOGIST 08/11/23 13:27 By the signature above, the attending physician certifies that he/she has personally conducted a gross and/or microscopic examination of the described specimens and rendered or confirmed the above diagnosis. Gross Description: A. Received in formalin labeled with the patients name and ascending colon polyp. Number of tissue pieces: Color: Patel/pink. Size: 0.2 x 0.1 x 0.1 cm in aggregate diameter. Entirely submitted as A1. B. Received in formalin labeled with the patients name and transverse colon polyps x2. Number of tissue pieces: 5+. Color: Patel/pink. Size: 0.3 x 0.2 x 0.2 cm in aggregate diameter. Entirely submitted as B1, B2. C. Received in formalin labeled with the patients name and descending colon polyp. Number of tissue pieces: 2. Color: Patel/pink. Size: 0.2 x 0.2 x 0.1 cm in aggregate diameter. Entirely submitted as C1. D. Received in formalin labeled with the patients name and sigmoid colon polyp. Number of tissue pieces: 3. Color: Patel/pink. Size: 0.2 x 0.2 x 0.2 cm in aggregate diameter. Entirely submitted as D1. [facility] [place] [address] [place] [address] PATHOLOGY REPORT Name: CHASITY Ball : 1970 (AGE:53) F Order Phys: MARCELLE Navarrete Admit Phys: MARCELLE Navarrete Collected Date: 08/05/23 09:27 Order #: [id number] Received Date: 08/06/23 09:27 Primary Care: [facility] Unsigned Transcriptions represent a preliminary report and do not represent a medical or legal document E. Received in formalin labeled with the patients name and rectal polyps x3. Number of tissue pieces: 5+. Color: Patel/pink. Size: 0.4 x 0.3 x 0.2 cm in aggregate diameter. Entirely submitted as E1, E2. Clinical Diagnosis: Screening colonoscopy Pertinent Clinical Data: Specimen Source: A. Ascending colon polyp; B. Transverse colon polyp x2; C. Descending colon polyp; D. Sigmoid colon polyp; E. Rectal polyp x3. Procedure Location Note: Gross evaluation done at [place], [place]. Microscopic evaluation done at [place], [place]. Histology processed at [facility], [place], [place]. Complexity Code: R d: 08/06/23; #[id number]; 1108 t: 08/09/23 15:08 SAB d: 08/10/23, 1126, #[id number] t: 08/11/23, 1247, EW Copy for: File copy printer # [id number] Copy for: MARCELLE Navarrete via fax DISCHARGED
--- OUTSIDE RECORDS SUMMARY | 2024-07-12 10:53 | XMS_ITS ---
Author Organization Unknown Address [address] [place] [phone] Phone Care Team Providers Care Tobacco Packing Machine Operator Name Role Phone LELIA Dial Attending Unavailable Results HEMOGLOBIN A1C* - Collect Da te/Time: 04/07/2023 08:09 [facility] ID: [id number] [address] [place] [address], [address] LOINC: 4548-4 Test Value Unit Reference Range Code Code System Flag Hgb A1c 5.7 % L=3.8 H=5.7 4548-4 LOINC MEAN BLOOD GLUCOSE 104 mg/dL 50446-5 LOINC LIPID PANEL* - Collect Date/ Time: 04/07/2023 08:09 [facility] ID: [id number] [address] [place] [address], [id number] LOINC: Test Value Unit Reference Range Code Code System Flag FASTING STATUS: NOT KNOWN CHOLESTEROL 136 mg/dL L=0 H=200 2093-3 LOINC TRIGLYCERIDES 45 mg/dL L=53 H=223 2571-8 LOINC L HDL 95 mg/dL L=37 H=91 2085-9 LOINC H non-HDL-C 41 mg/dL L=0 H=160 09626-2 LOINC LDL (CALC) 32 mg/dL L=0 H=130 86981-6 LOINC % HDL 69.9 % Chol/HDL Ratio 1.4 L=0.0 H=4.4 9830-1 LOINC CHD Relative Risk 0.3 x Avg L=0.0 H=1.0 LDL/HDL Ratio 0.3 L=0.0 H=3.2 69245-2 LOINC CHD Relative Risk. 0.1 x Avg L=0.0 H=1.0 BASIC METABOLIC PANEL (BMP) - Collect Date/Time: 04/07/2023 08:09 [facility] ID: [id number] [address] [place], [place], [address] LOINC: 39254-9 Test Value Unit Reference Range Code Code System Flag GLUCOSE 102 mg/dL L=70 H=116 2345-7 LOINC BUN 13 mg/dL L=6 H=25 3094-0 LOINC CREATININE 0.90 mg/dL L=0.51 H=0.95 2160-0 LOINC SODIUM SERUM 141 mmol/L L=136 H=145 2951-2 LOINC POTASSIUM SERUM 4.1 mmol/L L=3.4 H=5.2 2823-3 LOINC CHLORIDE SERUM 105 mmol/L L=96 H=110 2075-0 LOINC CARBON DIOXIDE (CO2) 27 mmol/L L=22 H=34 2028-9 LOINC ANION GAP 8.8 mmol/L 66238-5 LOINC CALCIUM SERUM 9.4 mg/dL L=8.2 H=10.2 53261-5 LOINC AGE 52 years eGFR (non-Afr.Amer.) 66 mL/min 27847-6 LOINC eGFR (Afr-Nigerian) 80 mL/min 13391-1 LOINC Social History Type Status Start Date End Date Code Code Syst em Smoking History Former smoker 8775711 SNOMED CT Sex Female Hospital Discharge Instructions Should you have any questions prior to discharge, please contact a member of your healthcare team. If you have left the hospital and have any questions, please contact your primary care physician. Reason For Referral No Data Found Problems Problem Start Date Resolved Date Status Code Code System MIGRAINE 05/19/2021 resolved 29163889 SNOMED-CT ANXIETY 05/19/2021 resolved 27117175 SNOMED-CT Allergies and Adverse Reactions Allergy Substance Reaction Severity Start Date Concern Status Code Code System SULFA (sulfonamide) HIVES, PT SAYS CAN TAKE CELEBREX PER ANTON (SNOMED-CT: null) Moderate Active 98815699 SNOMED-CT NAPROXEN Hives (SNOMED-CT: 920577315) Active 7258 RxNorm Plan of Treatment LAB DRAW 15MIN 04/07/2023 LAB DRAW 15MIN 07/23/2022 LAB DRAW 15MIN 04/11/2021 Encounters Encounter Diagnosis Start Date Code Code Sys tem Encounter for general adult medical examination without abnormal findings 04/07/2023 SNOMED-CT Personal Care Team Section Performer Name Performer Role Active Date Inactive Da te
--- OUTSIDE RECORDS SUMMARY | 2024-07-12 10:53 | XMS_ITS ---
Author Organization Unknown Address [address] [place] [phone] Phone Care Team Providers Care Video Surveillance Technician Name Role Phone MARCELLE Navarrete Attending Unavailable Social History Type Status Start Date End Date Code Code Syst em Smoking History Former smoker 4422435 SNOMED CT Sex Female Hospital Discharge Instructions Should you have any questions prior to discharge, please contact a member of your healthcare team. If you have left the hospital and have any questions, please contact your primary care physician. Reason For Referral No Data Found Problems Problem Start Date Resolved Date Status Code Code System MIGRAINE 05/19/2021 resolved 76387090 SNOMED-CT ANXIETY 05/19/2021 resolved 28116641 SNOMED-CT Allergies and Adverse Reactions Allergy Substance Reaction Severity Start Date Concern Status Code Code System SULFA (sulfonamide) HIVES, PT SAYS CAN TAKE CELEBREX PER ANTON (SNOMED-CT: null) Moderate Active 52480500 SNOMED-CT NAPROXEN Hives (SNOMED-CT: 912036703) Active 7258 RxNorm Plan of Treatment LAB DRAW 15MIN 04/07/2023 LAB DRAW 15MIN 07/23/2022 LAB DRAW 15MIN 04/11/2021 Encounters Encounter Diagnosis Start Date Code Code Sys tem Screening for malignant neoplasm of colon 08/05/2023 337518578 SNOMED-CT Personal Care Team Section Performer Name Performer Role Active Date Inactive Da te
--- OUTSIDE RECORDS SUMMARY | 2024-07-12 10:53 | XMS_ITS ---
Author Organization Unknown Address [address] [place] [phone] Phone Care Team Providers Care Government Services Professional Name Role Phone LELIA Dial Attending Unavailable Results THIAMIN (VITAMIN B1) WHOLE B LOOD - Collect Date/Time: 07/23/2022 07:47 [facility] ID: [id number] [address] [place], [place], [phone] LOINC: 84563-6 Test Value Unit Reference Range Code Code System Flag Thiamin (Vitamin B1), WB 167 70-180 41455-9 LOINC Social History Type Status Start Date End Date Code Code Syst em Smoking History Former smoker 0586582 SNOMED CT Sex Female Hospital Discharge Instructions Should you have any questions prior to discharge, please contact a member of your healthcare team. If you have left the hospital and have any questions, please contact your primary care physician. Reason For Referral No Data Found Problems Problem Start Date Resolved Date Status Code Code System MIGRAINE 05/19/2021 resolved 59655194 SNOMED-CT ANXIETY 05/19/2021 resolved 90020185 SNOMED-CT Allergies and Adverse Reactions Allergy Substance Reaction Severity Start Date Concern Status Code Code System SULFA (sulfonamide) HIVES, PT SAYS CAN TAKE CELEBREX PER ANTON (SNOMED-CT: null) Moderate Active 23237708 SNOMED-CT NAPROXEN Hives (SNOMED-CT: 181165369) Active 7258 RxNorm Plan of Treatment LAB DRAW 15MIN 04/07/2023 LAB DRAW 15MIN 07/23/2022 LAB DRAW 15MIN 04/11/2021 Encounters Encounter Diagnosis Start Date Code Code Sys tem Amenorrhea, unspecified 07/23/2022 [facility] ED-CT Personal Care Team Section Performer Name Performer Role Active Date Inactive Da te
--- OUTSIDE RECORDS SUMMARY | 2024-07-12 10:54 | XMS_ITS ---
Author Organization Unknown Address [address] [place] [phone] Phone Care Team Providers Care Accounting Machine Mechanic Name Role Phone AMY Velasquez Attending Unavailable SUZY MATT Physician Medicaid Collection Specialist Unavailable LELIA Dial Primary Unavailable Social History Type Status Start Date End Date Code Code Syst em Smoking History Former smoker 3318441 SNOMED CT Sex Female Vital Signs Vital Sign Value Unit Robeson Value Robeson Unit Date/Time Recent/Initial? Code Code System Systolic Blood Pressure 110 mm[Hg] 04/13/2024 09:07 Initial 8480-6 [facility] Diastolic Blood Pressure 76 mm[Hg] 04/13/2024 09:07 Initial 8462-4 [facility] O2 Saturation 98 % 2023 09:07 Initial 10916- 5 [facility] Pulse 58.0 /min 04/13/2024 09:07 Initial 8867-4 [facility] Respiration 16 /min 04/13/20 09:07 Initial 9279-1 [facility] Temperature 36.3 Evita 97.3 F 04/13/20 09:07 Initial 8310-5 [facility] Hospital Discharge Instructions Should you have any questions prior to discharge, please contact a member of your healthcare team. If you have left the hospital and have any questions, please contact your primary care physician. Reason For Referral No Data Found Procedures Procedure Name Date Status Code Code Syste m Neuroplasty &/Or Transpositi on; Median Nerve At Carpal Tunnel 04/13/2024 completed 89022 CPT Problems Problem Start Date Resolved Date Status Code Code System MIGRAINE 05/19/2021 resolved 21741981 SNOMED-CT ANXIETY 05/19/2021 resolved 76742379 SNOMED-CT Allergies and Adverse Reactions Allergy Substance Reaction Severity Start Date Concern Status Code Code System SULFA (sulfonamide) HIVES, PT SAYS CAN TAKE CELEBREX PER ANTON (SNOMED-CT: null) Moderate Active 38268542 SNOMED-CT NAPROXEN Hives (SNOMED-CT: 036405475) Active 7258 RxNorm Plan of Treatment LAB DRAW 15MIN 04/07/2023 LAB DRAW 15MIN 07/23/2022 LAB DRAW 15MIN 04/11/2021 Encounters Encounter Diagnosis Start Date Code Code Sys tem Carpal tunnel syndrome, right upper limb 04/13/2024 SNOMED-CT Personal Care Team Section Performer Name Performer Role Active Date Inactive Da te
--- OUTSIDE RECORDS SUMMARY | 2024-07-12 10:54 | XMS_ITS ---
Author Organization Unknown Address [address] [place] [phone] Phone Care Team Providers Care Manager Environmental Health Name Role Phone ROOMET ROBERTO Attending Unavailable LELIA Dial Primary Unavailable Social History Type Status Start Date End Date Code Code Syst em Smoking History Former smoker 5197678 SNOMED CT Sex Female Hospital Discharge Instructions Should you have any questions prior to discharge, please contact a member of your healthcare team. If you have left the hospital and have any questions, please contact your primary care physician. Reason For Referral No Data Found Procedures Procedure Name Date Status Code Code Syste m Nerve Conduction Studies 7-8 Studies 01/04/2024 completed 65793 CPT Needle EMG Ea Extremity w/Pa raspinl Area Limited 01/04/2024 completed 42008 CPT Problems Problem Start Date Resolved Date Status Code Code System MIGRAINE 05/19/2021 resolved 09823004 SNOMED-CT ANXIETY 05/19/2021 resolved 75013288 SNOMED-CT Allergies and Adverse Reactions Allergy Substance Reaction Severity Start Date Concern Status Code Code System SULFA (sulfonamide) HIVES, PT SAYS CAN TAKE CELEBREX PER ANTON (SNOMED-CT: null) Moderate Active 69864476 SNOMED-CT NAPROXEN Hives (SNOMED-CT: 335066002) Active 7258 RxNorm Plan of Treatment LAB DRAW 15MIN 04/07/2023 LAB DRAW 15MIN 07/23/2022 LAB DRAW 15MIN 04/11/2021 Encounters Encounter Diagnosis Start Date Code Code Sys tem Carpal tunnel syndrome, bilateral upper limbs 01/04/20 24 SNOMED-CT Personal Care Team Section Performer Name Performer Role Active Date Inactive Da te
--- OUTSIDE RECORDS SUMMARY | 2024-07-12 10:54 | XMS_ITS ---
Author Organization Unknown Address [address] [place] [phone] Phone Care Team Providers Care Funeral Pre Arrangement Counselor Name Role Phone AMY Velasquez Attending Unavailable Social History Type Status Start Date End Date Code Code Syst em Smoking History Former smoker 0082752 SNOMED CT Sex Female Hospital Discharge Instructions Should you have any questions prior to discharge, please contact a member of your healthcare team. If you have left the hospital and have any questions, please contact your primary care physician. Reason For Referral No Data Found Problems Problem Start Date Resolved Date Status Code Code System MIGRAINE 05/19/2021 resolved 22854257 SNOMED-CT ANXIETY 05/19/2021 resolved 95599226 SNOMED-CT Allergies and Adverse Reactions Allergy Substance Reaction Severity Start Date Concern Status Code Code System SULFA (sulfonamide) HIVES, PT SAYS CAN TAKE CELEBREX PER ANTON (SNOMED-CT: null) Moderate Active 09662282 SNOMED-CT NAPROXEN Hives (SNOMED-CT: 141391704) Active 7258 RxNorm Plan of Treatment LAB DRAW 15MIN 04/07/2023 LAB DRAW 15MIN 07/23/2022 LAB DRAW 15MIN 04/11/2021 Encounters Encounter Diagnosis Start Date Code Code Sys tem 04/13/2024 [id number] SNOMED-CT Personal Care Team Section Performer Name Performer Role Active Date Inactive Da te
--- OUTSIDE RECORDS SUMMARY | 2024-07-12 10:55 | XMS_ITS ---
Author Organization Unknown Address [address] [place] [phone] Phone Care Team Providers Care Silk Washing Machine Operator Name Role Phone LAMELL HANNAH Navarrete Attending Unavailable LELIA Dial Primary Unavailable Social History Type Status Start Date End Date Code Code Syst em Smoking History Former smoker 2159413 SNOMED CT Sex Female Hospital Discharge Instructions Should you have any questions prior to discharge, please contact a member of your healthcare team. If you have left the hospital and have any questions, please contact your primary care physician. Reason For Referral No Data Found Problems Problem Start Date Resolved Date Status Code Code System MIGRAINE 05/19/2021 resolved 25482324 SNOMED-CT ANXIETY 05/19/2021 resolved 81354140 SNOMED-CT Allergies and Adverse Reactions Allergy Substance Reaction Severity Start Date Concern Status Code Code System SULFA (sulfonamide) HIVES, PT SAYS CAN TAKE CELEBREX PER ANTON (SNOMED-CT: null) Moderate Active 99915130 SNOMED-CT NAPROXEN Hives (SNOMED-CT: 594212674) Active 7258 RxNorm Plan of Treatment LAB DRAW 15MIN 04/07/2023 LAB DRAW 15MIN 07/23/2022 LAB DRAW 15MIN 04/11/2021 Encounters Encounter Diagnosis Start Date Code Code Sys tem 02/24/2024 [id number] SNOMED-CT Personal Care Team Section Performer Name Performer Role Active Date Inactive Da shy
--- OUTSIDE RECORDS SUMMARY | 2024-07-12 10:55 | XMS_ITS ---
Author Organization Unknown Address [address] [place] [phone] Phone Care Team Providers Care Hotel Maintenance Technician Name Role Phone MICAELA Cárdenas Attending Unavailable LELIA Dial Primary Unavailable Social History Type Status Start Date End Date Code Code Syst em Smoking History Former smoker 8300107 SNOMED CT Sex Female Hospital Discharge Instructions Should you have any questions prior to discharge, please contact a member of your healthcare team. If you have left the hospital and have any questions, please contact your primary care physician. Reason For Referral No Data Found Problems Problem Start Date Resolved Date Status Code Code System MIGRAINE 05/19/2021 resolved 61273636 SNOMED-CT ANXIETY 05/19/2021 resolved 94639333 SNOMED-CT Allergies and Adverse Reactions Allergy Substance Reaction Severity Start Date Concern Status Code Code System SULFA (sulfonamide) HIVES, PT SAYS CAN TAKE CELEBREX PER ANTON (SNOMED-CT: null) Moderate Active 93473282 SNOMED-CT NAPROXEN Hives (SNOMED-CT: 989450383) Active 7258 RxNorm Plan of Treatment LAB DRAW 15MIN 04/07/2023 LAB DRAW 15MIN 07/23/2022 LAB DRAW 15MIN 04/11/2021 Encounters Encounter Diagnosis Start Date Code Code Sys tem Procedure on nervous system 04/26/2024 007000008 SNOMED-CT Personal Care Team Section Performer Name Performer Role Active Date Inactive Da te
--- OUTSIDE RECORDS SUMMARY | 2024-07-12 10:55 | XMS_ITS ---
Author Organization Unknown Address [address] [place] [phone] Phone Care Team Providers Care Burling And Joining Supervisor Name Role Phone RUSS YODER Attending Unavailable [facility]ORT [place] Primary Unavailable Social History Type Status Start Date End Date Code Code Syst em Smoking History Former smoker 8767340 SNOMED CT Sex Female Hospital Discharge Instructions Should you have any questions prior to discharge, please contact a member of your healthcare team. If you have left the hospital and have any questions, please contact your primary care physician. Reason For Referral No Data Found Problems Problem Start Date Resolved Date Status Code Code System MIGRAINE 05/19/2021 resolved 68801594 SNOMED-CT ANXIETY 05/19/2021 resolved 22404043 SNOMED-CT Allergies and Adverse Reactions Allergy Substance Reaction Severity Start Date Concern Status Code Code System SULFA (sulfonamide) HIVES, PT SAYS CAN TAKE CELEBREX PER ANTON (SNOMED-CT: null) Moderate Active 09332362 SNOMED-CT NAPROXEN Hives (SNOMED-CT: 717807495) Active 7258 RxNorm Plan of Treatment LAB DRAW 15MIN 04/07/2023 LAB DRAW 15MIN 07/23/2022 LAB DRAW 15MIN 04/11/2021 Encounters Encounter Diagnosis Start Date Code Code Sys tem Migraine without aura, not i ntractable, with status migrainosus 12/10/2020 SNOMED-CT Personal Care Team Section Performer Name Performer Role Active Date Inactive Da te
== END 2024-07-12 10:28 | disposition home or self-care (01) ==
LOC: NCHCN 10:27
PROVIDERS: PCP Family Medicine; Visit Provider Family Medicine
DX: Z11.51 Encounter for screening for human papillomavirus (HPV) (principal); Z01.419 Encounter for gynecological examination (general) (routine) without abnormal findings; Z78.0 Asymptomatic menopausal state
CPT/HCPCS: 88142; 87624

== ENCOUNTER 2024-10-12 15:45 | Outpatient (REF) | payer OTHER, SELFPAY ==
[2024-10-12 15:33] LABS: HCT 39.9 % (36.0-46.0); HGB 13.2 g/dL (11.2-15.7); MCH 30.7 pg (27.0-33.0); MCHC 33.1 % (32.0-36.0); MCV 93 fL (80-95); MPV 10.4 fL (8.0-11.0); Platelet Count 343 10^3/uL (130-400); RDW 12.5 % (11.7-14.6); RDW-SD 42.5 fL; WBC 6.22 10^3/uL (4.4-10.8)
== END 2024-10-12 15:46 | disposition home or self-care (01) ==
LOC: NCHCN 15:45
PROVIDERS: PCP Family Medicine; Visit Provider Family Medicine
DX: D50.9 Iron deficiency anemia, unspecified (principal)
CPT/HCPCS: 85027